=== PATIENT | male | born 1950 | race Caucasian/White ===

== ENCOUNTER 2020-08-28 10:34 | Inpatient (IN) ==
[2020-08-28] MEDS ORDERED: SODIUM CHLORIDE 0.9% 1000ML 1,000 ML IV ONE (11:02)
--- NOTE | 2020-08-28 11:07 | Emergency Department Note ---
Impression & Plan Occipital stroke, Cerebrovascular accident ED Provider Note NAME: ANISA BLAIR AGE: 69 SEX: M : 1950 ARRIVES VIA: Walk-In INFORMANT: Patient ED PROVIDER(S): Behzad Barone DO CHIEF COMPLAINT: Visual issues HPI: Patient is a 69-year-old male who presents to the ER for left eye pain and visual issues. His symptoms started yesterday around 11. He notes he started having pain behind his left eye. With that he noticed a loss of visual field when he looks straight on the right side of his vision. Headache has now resolved. The pain behind his eye is only present with coughing now. Denies any chest pain or shortness of breath. No nausea vomiting or diarrhea. No dysuria urgency or frequency. He denies any weakness or numbness. He has some paresthesias in his right thumb. He notes he does feel little dizzy/lightheaded when he is up moving around. No symptoms have now resolved. ROS: See above HPI for pertinent positives & negatives. A total of 10 systems reviewed and were otherwise negative. PAST MEDICAL HISTORY:See Below PAST SURGICAL HISTORY:See Below FAMILY HISTORY:See Below SOCIAL HISTORY:See Below HOME MEDICATIONS:See Below ALLERGIES:See Below VITALS:See Below PHYSICAL EXAMINATION: GENERAL: Sitting up in bed, alert, well appearing, well nourished, no distress, non-toxic EYE EXAM: normal conjunctiva. PERRL and EOM's intact. Visual brown intact. OROPHARYNX: no exudate, no erythema, lips, buccal mucosa, and tongue normal and mucous membranes are moist NECK: supple, no nuchal rigidity, no adenopathy, non-tender LUNGS: Clear to auscultation. Normal chest wall mechanics HEART: no murmurs, S1 normal and S2 normal ABDOMEN: abdomen soft, non-tender, normo-active bowel sounds, no masses, no rebound or guarding. BACK: Back is symmetrical on inspection and there is no deformity, no midline tenderness, no CVA tenderness. SKIN: no rashes and no bruising UPPER EXTREMITIES: upper extremities are grossly normal. LOWER EXTREMITIES: No pitting edema. NEURO EXAM: Normal sensorium, cranial nerves II-XII intact, normal speech, no weakness of arms, no weakness of legs. No drift. Finger to nose intact. Gross sensation intact. MEDICAL DECISION MAKING: Patient is a 69-year-old male who presents the ER for visual complaint. IV was established blood was obtained. Labs show no significant leukocytosis or anemia. Sed rate was normal. INR was unremarkable. BMP with slightly elevated glucose. LFTs bilirubin troponin was negative. Covid was negative. CTs and CTAs of the head and neck showed an occipital stroke. He is clearly out of the window for TPA. Discussed with hospitalist and he was admitted for further work-up. Triage Nursing notes reviewed. Limited review of prior medical records performed Vital Signs: reviewed and remarkable for no significant abnormalities Differential diagnosis: Differential Diagnosis includes but is not limited to ischemic Stroke, hemorrhagic stroke, bells palsy, mass, neoplasm, migraine headache, seizure, subarachnoid hemorrhage, TIA, and transient global amnesia. ER treatment provided: See below Diagnostics interpreted by me: ECG: Sinus rhythm rate 63 Normal axis No PVCs PACs QTC 427 Cardiac Monitoring: An order was placed for continuous cardiac monitoring. The monitor shows a rate of 65 with sinus rhythm. Laboratory studies: As stated above and show below. Imaging studies: CTs as discussed above Consultation(s): Discussed with hospitalist for further evaluation Procedures: none Critical Care: None Past Med/Surg History Medical History (Updated 08/28/20 @ 16:30 by Behzad Barone DO) HTN (hypertension) Hyperlipidemia Surgical History (Updated 08/28/20 @ 15:19 by Kaitlin Colvin MD) No pertinent past surgical history Family History (Updated 08/28/20 @ 15:22 by Kaitlin Colvin MD) Father Heart disease Mother Heart disease Brother , at 50 Heart disease Enlarged heart at 21 Myocardial infarction Social History (Updated 08/28/20 @ 15:22 by Kaitlin Colvin MD) Smoking Status: Never smoker Hx Alcohol Use: Yes Alcohol type: beer Alcohol Intake Frequency: Monthly or Less Hx Substance Use: No Feels Safe at Home: Yes Allergies Allergies Allergy/AdvReac Type Severity Reaction Status Date / Time No Known Allergies Allergy Unverified 08/28/20 11:06 Home Meds Home Medications Medication Instructions Recorded Confirmed gemfibrozil 600 mg PO BID 08/28/20 08/28/20 tamsulosin [Flomax] 0.4 mg PO QAM 08/28/20 08/28/20 Results & Data (ED) Vital Signs Vital Signs - 24 hr 08/28/20 10:38 08/28/20 10:48 08/28/20 11:00 Temperature 36.5 C Temperature Source Temporal Artery Scan Pulse Rate 40 L 65 68 Pulse Rate [Right Apical] Pulse Rate from SpO2 Sensor Pulse Rhythm Regular Pulse Rhythm [Right Apical] Pulse Strength Normal Respiratory Rate 18 18 21 Respiratory Effort / Characteristics Non-Labored Respiratory Depth Normal Respiratory Pattern Regular Blood Pressure 187/92 H Blood Pressure [Left Arm] Blood Pressure Mean 123 Blood Pressure Mean [Left Arm] Blood Pressure Position Sitting Blood Pressure Position [Left Arm] Pulse Oximetry 98 Oxygen Delivery Method Room Air Sepsis Recent Fever Within 48 Hours No Sepsis New/Unexplained Change in Mental Status No Sepsis Action Taken by Nursing No Action Required 08/28/20 11:15 08/28/20 11:20 08/28/20 11:24 Temperature Temperature Source Pulse Rate 62 Pulse Rate [Right Apical] 62 Pulse Rate from SpO2 Sensor 52 L Pulse Rhythm Pulse Rhythm [Right Apical] Regular Pulse Strength Respiratory Rate 20 18 Respiratory Effort / Characteristics Respiratory Depth Normal Respiratory Pattern Blood Pressure 161/96 H Blood Pressure [Left Arm] 161/96 H Blood Pressure Mean 117 Blood Pressure Mean [Left Arm] 117 Blood Pressure Position Blood Pressure Position [Left Arm] Lying Pulse Oximetry 97 97 97 Oxygen Delivery Method Room Air Room Air Sepsis Recent Fever Within 48 Hours Sepsis New/Unexplained Change in Mental Status Sepsis Action Taken by Nursing 08/28/20 11:39 08/28/20 11:40 08/28/20 11:41 Temperature Temperature Source Pulse Rate 72 68 71 Pulse Rate [Right Apical] Pulse Rate from SpO2 Sensor 62 73 68 Pulse Rhythm Pulse Rhythm [Right Apical] Pulse Strength Respiratory Rate 14 20 12 Respiratory Effort / Characteristics Respiratory Depth Respiratory Pattern Blood Pressure 150/84 H Blood Pressure [Left Arm] Blood Pressure Mean 106 Blood Pressure Mean [Left Arm] Blood Pressure Position Blood Pressure Position [Left Arm] Pulse Oximetry 95 96 97 Oxygen Delivery Method Room Air Sepsis Recent Fever Within 48 Hours Sepsis New/Unexplained Change in Mental Status Sepsis Action Taken by Nursing 08/28/20 12:00 08/28/20 12:02 08/28/20 12:30 Temperature Temperature Source Pulse Rate 71 71 61 Pulse Rate [Right Apical] Pulse Rate from SpO2 Sensor 63 Pulse Rhythm Pulse Rhythm [Right Apical] Pulse Strength Respiratory Rate 17 17 17 Respiratory Effort / Characteristics Respiratory Depth Respiratory Pattern Blood Pressure 191/81 H Blood Pressure [Left Arm] Blood Pressure Mean 117 Blood Pressure Mean [Left Arm] Blood Pressure Position Blood Pressure Position [Left Arm] Pulse Oximetry 96 96 96 Oxygen Delivery Method Room Air Room Air Room Air Sepsis Recent Fever Within 48 Hours Sepsis New/Unexplained Change in Mental Status Sepsis Action Taken by Nursing 08/28/20 12:31 08/28/20 13:00 08/28/20 13:30 Temperature Temperature Source Pulse Rate 63 66 72 Pulse Rate [Right Apical] Pulse Rate from SpO2 Sensor 68 Pulse Rhythm Pulse Rhythm [Right Apical] Pulse Strength Respiratory Rate 18 21 22 Respiratory Effort / Characteristics Respiratory Depth Respiratory Pattern Blood Pressure 178/103 H 149/74 H Blood Pressure [Left Arm] Blood Pressure Mean 128 99 Blood Pressure Mean [Left Arm] Blood Pressure Position Blood Pressure Position [Left Arm] Pulse Oximetry 96 94 96 Oxygen Delivery Method Room Air Room Air Room Air Sepsis Recent Fever Within 48 Hours Sepsis New/Unexplained Change in Mental Status Sepsis Action Taken by Nursing Laboratory Data Result diagrams: 08/28/20 11:09 08/28/20 11:09 Lab Results 08/28/20 08/28/20 08/28/20 Range/Units 11:01 11:09 11:09 WBC (4.8-10.8) K/uL RBC (4.7-6.1) M/uL Hgb (14.0-18.0) g/dL Hct (42-52) % MCV (80-100) fL MCH (25-34) pg MCHC (32-36) g/dL RDW Std Deviation (36.4-46.3) fL RDW Coeff of Adam (11.5-14.5) % Plt Count (130-400) K/uL MPV (7.4-10.4) fL Immature Gran % (Auto) % Neut % (Auto) % Lymph % (Auto) % [place] % (Auto) % Eos % (Auto) % Baso % (Auto) % Neut # (Auto) (1.4-6.5) K/uL Lymph # (Auto) (1.2-3.4) K/uL [place] # (Auto) (0.11-0.59) K/uL Eos # (Auto) (0-0.5) K/uL Baso # (Auto) (0-0.2) K/uL Immature Gran # (Auto) (0.00-0.02) K/uL ESR 12 (0-20) mm/hr PT (9.0-12.0) Seconds INR (0.9-1.1) APTT (21.0-31.0) Seconds PTT Ratio Sodium 137 (136-145) mmol/L Potassium 3.8 (3.5-5.1) mmol/L Chloride 105 (98-107) mmol/L Carbon Dioxide 28 (21-32) mmol/L Anion Gap 4.0 (3-11) BUN 16 (7-18) mg/dl Creatinine 1.40 (0.6-1.4) mg/dl Est Cr Clr Drug Dosing 54.7 ml/min Est GFR ( Amer) 59.0 Est GFR (Non-Af Amer) 50.9 BUN/Creatinine Ratio 11.5 (10-20) Glucose 151 H (70-99) mg/dl POC Glucose 145 H (70-99) mg/dl Calcium 10.2 H (8.5-10.1) mg/dl Magnesium 2.1 (1.8-2.4) mg/dl Total Bilirubin 1.0 (0.2-1) mg/dl AST 17 (15-37) U/L ALT 36 (12-78) U/L Alkaline Phosphatase 105 (45-117) U/L Troponin I < 0.015 (0-0.045) ng/ml C-Reactive Protein < 0.29 (0-0.29) mg/dl Total Protein 8.2 (6.4-8.2) gm/dl Albumin 4.1 (3.4-5.0) gm/dl Globulin 4.1 H (2.5-4.0) gm/dl Albumin/Globulin Ratio 1.0 (0.9-2) COVID-19 Eval Order SARS-CoV-2 (PCR) (Negative) Influenza Type A (PCR) (Neg) Influenza Type B (PCR) (Neg) RSV (RT-PCR) (Neg) 08/28/20 08/28/20 08/28/20 Range/Units 11:09 11:09 13:31 WBC 9.89 (4.8-10.8) K/uL RBC 5.48 (4.7-6.1) M/uL Hgb 17.8 (14.0-18.0) g/dL Hct 50.5 (42-52) % MCV 92.2 (80-100) fL MCH 32.5 (25-34) pg MCHC 35.2 (32-36) g/dL RDW Std Deviation 43.1 (36.4-46.3) fL RDW Coeff of Adam 12.6 (11.5-14.5) % Plt Count 275 (130-400) K/uL MPV 9.1 (7.4-10.4) fL Immature Gran % (Auto) 0.2 % Neut % (Auto) 78.9 % Lymph % (Auto) 12.3 % [place] % (Auto) 8.1 % Eos % (Auto) 0.3 % Baso % (Auto) 0.2 % Neut # (Auto) 7.80 H (1.4-6.5) K/uL Lymph # (Auto) 1.22 (1.2-3.4) K/uL [place] # (Auto) 0.80 H (0.11-0.59) K/uL Eos # (Auto) 0.03 (0-0.5) K/uL Baso # (Auto) 0.02 (0-0.2) K/uL Immature Gran # (Auto) 0.02 (0.00-0.02) K/uL ESR (0-20) mm/hr PT 11.0 (9.0-12.0) Seconds INR 1.1 (0.9-1.1) APTT 24.7 (21.0-31.0) Seconds PTT Ratio 0.9 Sodium (136-145) mmol/L Potassium (3.5-5.1) mmol/L Chloride (98-107) mmol/L Carbon Dioxide (21-32) mmol/L Anion Gap (3-11) BUN (7-18) mg/dl Creatinine (0.6-1.4) mg/dl Est Cr Clr Drug Dosing ml/min Est GFR ( Amer) Est GFR (Non-Af Amer) BUN/Creatinine Ratio (10-20) Glucose (70-99) mg/dl POC Glucose (70-99) mg/dl Calcium (8.5-10.1) mg/dl Magnesium (1.8-2.4) mg/dl Total Bilirubin (0.2-1) mg/dl AST (15-37) U/L ALT (12-78) U/L Alkaline Phosphatase (45-117) U/L Troponin I (0-0.045) ng/ml C-Reactive Protein (0-0.29) mg/dl Total Protein (6.4-8.2) gm/dl Albumin (3.4-5.0) gm/dl Globulin (2.5-4.0) gm/dl Albumin/Globulin Ratio (0.9-2) COVID-19 Eval Order [facility]FluRsv at [facility] SARS-CoV-2 (PCR) (Negative) Influenza Type A (PCR) (Neg) Influenza Type B (PCR) (Neg) RSV (RT-PCR) (Neg) 08/28/20 Range/Units 13:31 WBC (4.8-10.8) K/uL RBC (4.7-6.1) M/uL Hgb (14.0-18.0) g/dL Hct (42-52) % MCV (80-100) fL MCH (25-34) pg MCHC (32-36) g/dL RDW Std Deviation (36.4-46.3) fL RDW Coeff of Adam (11.5-14.5) % Plt Count (130-400) K/uL MPV (7.4-10.4) fL Immature Gran % (Auto) % Neut % (Auto) % Lymph % (Auto) % [place] % (Auto) % Eos % (Auto) % Baso % (Auto) % Neut # (Auto) (1.4-6.5) K/uL Lymph # (Auto) (1.2-3.4) K/uL [place] # (Auto) (0.11-0.59) K/uL Eos # (Auto) (0-0.5) K/uL Baso # (Auto) (0-0.2) K/uL Immature Gran # (Auto) (0.00-0.02) K/uL ESR (0-20) mm/hr PT (9.0-12.0) Seconds INR (0.9-1.1) APTT (21.0-31.0) Seconds PTT Ratio Sodium (136-145) mmol/L Potassium (3.5-5.1) mmol/L Chloride (98-107) mmol/L Carbon Dioxide (21-32) mmol/L Anion Gap (3-11) BUN (7-18) mg/dl Creatinine (0.6-1.4) mg/dl Est Cr Clr Drug Dosing ml/min Est GFR ( Amer) Est GFR (Non-Af Amer) BUN/Creatinine Ratio (10-20) Glucose (70-99) mg/dl POC Glucose (70-99) mg/dl Calcium (8.5-10.1) mg/dl Magnesium (1.8-2.4) mg/dl Total Bilirubin (0.2-1) mg/dl AST (15-37) U/L ALT (12-78) U/L Alkaline Phosphatase (45-117) U/L Troponin I (0-0.045) ng/ml C-Reactive Protein (0-0.29) mg/dl Total Protein (6.4-8.2) gm/dl Albumin (3.4-5.0) gm/dl Globulin (2.5-4.0) gm/dl Albumin/Globulin Ratio (0.9-2) COVID-19 Eval Order SARS-CoV-2 (PCR) NEGATIVE (Negative) Influenza Type A (PCR) Negative (Neg) Influenza Type B (PCR) Negative (Neg) RSV (RT-PCR) Negative (Neg) Administered Medications Discontinued Medications Sodium Chloride (Nss 1000ml) 1,000 mls @ 999 mls/hr IV .[id number] ONE Stop: 08/28/20 12:02 Last Infusion: 08/28/20 13:31 Dose: 0 mls/hr Documented by: [id number] Admin: 08/28/20 12:00 Dose: 999 mls/hr Documented by: [id number] Ioversol (Optiray 350 500ml) 120 ml IV ONCE ONE Stop: 08/28/20 12:18 Last Admin: 08/28/20 12:18 Dose: 120 ml Documented by: [id number] Imaging Data Radiologist's Impression: Head CT 08/28/20 11:[address], HEAD & NECK CTA HISTORY: Lightheaded. Left eye pain. Headache. Dizziness. Stroke Like Symptoms TECHNIQUE: Noncontrast head CT was performed. Multiaxial CT images of the head were performed following the intravenous administration of contrast to evaluate the major cerebral vessels. Multiaxial CT images of the neck were also performed following the intravenous administration of contrast to evaluate the major cervical vessels. Maximum intensity projection images were also obtained. A dose lowering technique was utilized adhering to the principles of ALARA. COMPARISON: None. FINDINGS: Head CT: There is a 5.1 x 2.1 cm hypodense region within the left occipital lobe. This favors an acute to subacute infarct. Periventricular white matter hypodensities consistent with microvascular ischemic change. There is no mass, hematoma, midline shift. The ventricles and sulci demonstrate mild age-related involutional changes. Head CTA: Visualized intracranial internal carotid arteries, distal vertebral arteries, and basilar artery are widely patent. There is no significant stenosis, occlusion, or aneurysm seen within the bilateral ACAs, MCAs, or electrician. The major dural venous sinuses appear patent. There is a dominant distal left vertebral artery and hypoplastic distal right vertebral artery. Neck CTA: The aortic arch and proximal great vessels are widely patent. There is no significant stenosis, occlusion, or dissection identified within the bilateral common carotid, internal carotid, or vertebral arteries. Hypoplastic right vertebral artery. IMPRESSION: 1. A 5.1 x 2.1 cm hypodense region within the left occipital lobe. This is consistent with an acute to subacute infarct. 2. No significant stenosis, occlusion, or aneurysm within the ione of Block. 2. No significant stenosis, occlusion, or dissection identified within the [place] tid or vertebral arteries. ACT 112: Negative or not required by law. Electronically signed by: Andrea Mancilla M.D. 08/28/2020 12:44 PM Head CTA 08/28/20 11:[address], HEAD & NECK CTA HISTORY: Lightheaded. Left eye pain. Headache. Dizziness. Stroke Like Symptoms TECHNIQUE: Noncontrast head CT was performed. Multiaxial CT images of the head were performed following the intravenous administration of contrast to evaluate the major cerebral vessels. Multiaxial CT images of the neck were also performed following the intravenous administration of contrast to evaluate the major cervical vessels. Maximum intensity projection images were also obtained. A dose lowering technique was utilized adhering to the principles of ALARA. COMPARISON: None. FINDINGS: Head CT: There is a 5.1 x 2.1 cm hypodense region within the left occipital lobe. This favors an acute to subacute infarct. Periventricular white matter hypodensities consistent with microvascular ischemic change. There is no mass, hematoma, midline shift. The ventricles and sulci demonstrate mild age-related involutional changes. Head CTA: Visualized intracranial internal carotid arteries, distal vertebral arteries, and basilar artery are widely patent. There is no significant stenosis, occlusion, or aneurysm seen within the bilateral ACAs, MCAs, or electrician. The major dural venous sinuses appear patent. There is a dominant distal left vertebral artery and hypoplastic distal right vertebral artery. Neck CTA: The aortic arch and proximal great vessels are widely patent. There is no significant stenosis, occlusion, or dissection identified within the bilateral common carotid, internal carotid, or vertebral arteries. Hypoplastic right vertebral artery. IMPRESSION: 1. A 5.1 x 2.1 cm hypodense region within the left occipital lobe. This is consistent with an acute to subacute infarct. 2. No significant stenosis, occlusion, or aneurysm within the ione of Block. 2. No significant stenosis, occlusion, or dissection identified within the carotid or vertebral arteries. ACT 112: Negative or not required by law. Electronically signed by: Andrea Mancilla M.D. 08/28/2020 12:44 PM Neck CTA 08/28/20 11:[address], HEAD & NECK CTA HISTORY: Lightheaded. Left eye pain. Headache. Dizziness. Stroke Like Symptoms TECHNIQUE: Noncontrast head CT was performed. Multiaxial CT images of the head were performed following the intravenous administration of contrast to evaluate the major cerebral vessels. Multiaxial CT images of the neck were also performed following the intravenous administration of contrast to evaluate the major cervical vessels. Maximum intensity projection images were also obtained. A dose lowering technique was utilized adhering to the principles of ALARA. COMPARISON: None. FINDINGS: Head CT: There is a 5.1 x 2.1 cm hypodense region within the left occipital lobe. This favors an acute to subacute infarct. Periventricular white matter hypodensities consistent with microvascular ischemic change. There is no mass, hematoma, midline shift. The ventricles and sulci demonstrate mild age-related involutional changes. Head CTA: Visualized intracranial internal carotid arteries, distal vertebral arteries, and basilar artery are widely patent. There is no significant stenosis, occlusion, or aneurysm seen within the bilateral ACAs, MCAs, or electrician. The major dural venous sinuses appear patent. There is a dominant distal left vertebral artery and hypoplastic distal right vertebral artery. Neck CTA: The aortic arch and proximal great vessels are widely patent. There is no significant stenosis, occlusion, or dissection identified within the bilateral common carotid, internal carotid, or vertebral arteries. Hypoplastic right vertebral artery. IMPRESSION: 1. A 5.1 x 2.1 cm hypodense region within the left occipital lobe. This is consistent with an acute to subacute infarct. 2. No significant stenosis, occlusion, or aneurysm within the ione of Block. 2. No significant stenosis, occlusion, or dissection identified within the carotid or vertebral arteries. ACT 112: Negative or not required by law. Electronically signed by: Andrea Mancilla M.D. 08/28/2020 12:44 PM Discharge Plan Visit Data Chief Complaint: Neuro Symptoms/Deficit Stated Complaint: LEFT EYE PAIN, LIGHT HEADED ED Provider: Behzad Barone Discharge Problem: Occipital stroke, Cerebrovascular accident Forms Stand Alone Forms: [facility] Prescriptions Prescriptions: No Action tamsulosin [Flomax] 0.4 mg Capsule 0.4 mg PO QAM RF: 0 gemfibrozil 600 mg Tablet 600 mg PO BID RF: 0 Discharge Problem: Cerebrovascular accident Qualifiers: CVA mechanism: unspecified Qualified Code(s): I63.9 - Cerebral infarction, u nspecified
[2020-08-28 11:29] LABS: Basophils # (auto) 0.02 K/uL (0-0.2); Basophils % (auto) 0.2 %; Eosinophils # (auto) 0.03 K/uL (0-0.5); Eosinophils % (auto) 0.3 %; Hematocrit (blood only) 50.5 % (42-52); Hemoglobin 17.8 g/dL (14.0-18.0); Immature Granulocytes # (auto) 0.02 K/uL (0.00-0.02); Immature Granulocytes % (auto) 0.2 %; Lymphocytes # (auto) 1.22 K/uL (1.2-3.4); Lymphocytes % (auto) 12.3 %; Mean Corpuscular Hemoglobin 32.5 pg (25-34); Mean Corpuscular Hgb Conc 35.2 g/dL (32-36); Mean Corpuscular Volume 92.2 fL (80-100); Mean Platelet Volume 9.1 fL (7.4-10.4); Monocytes % (auto) 8.1 %; Neutrophils % (auto) 78.9 %; Platelet Count 275 K/uL (130-400); RDW Coefficient of Variation 12.6 % (11.5-14.5); RDW Standard Deviation 43.1 fL (36.4-46.3); Red Blood Count 5.48 M/uL (4.7-6.1); White Blood Count 9.89 K/uL (4.8-10.8)
[2020-08-28 11:44] LABS: INR 1.1 (0.9-1.1); Partial Thromboplastin Ratio 0.9; Partial Thromboplastin Time 24.7 Seconds (21.0-31.0)
[2020-08-28 11:57] LABS: Alanine Aminotransferase 36 U/L (12-78); Albumin Level 4.1 gm/dl (3.4-5.0); Aspartate Aminotransferase 17 U/L (15-37); BUN Creatinine Ratio 11.5 (10-20); Blood Urea Nitrogen 16 mg/dl (7-18); Calcium 10.2 mg/dl (8.5-10.1); Carbon Dioxide 28 mmol/L (21-32); Chloride 105 mmol/L (98-107); Creatinine Clr Calc Pharmacy 54.7 ml/min; Est GFR (Non-African American) 50.9; Glucose 151 mg/dl (70-99); Magnesium 2.1 mg/dl (1.8-2.4); Potassium 3.8 mmol/L (3.5-5.1); Sodium 137 mmol/L (136-145)
[2020-08-28 12:02] LABS: Alkaline Phosphatase 105 U/L (45-117); C Reactive Protein < 0.29 mg/dl (0-0.29); Globulin 4.1 gm/dl (2.5-4.0); Total Protein 8.2 gm/dl (6.4-8.2); Troponin I < 0.015 ng/ml (0-0.045)
[2020-08-28] MEDS ORDERED: OPTIRAY 350 500ml IV ONE (12:17)
--- NOTE | 2020-08-28 12:45 | CT Scan Report ---
NONCONTRAST HEAD CT, HEAD & NECK CTA HISTORY: Lightheaded. Left eye pain. Headache. Dizziness. Stroke Like Symptoms TECHNIQUE: Noncontrast head CT was performed. Multiaxial CT images of the head were performed followi ng the intravenous administration of contrast to evaluate the major cerebral vessels. Multiaxial CT i mages of the neck were also performed following the intravenous administration of contrast to evaluat e the major cervical vessels. Maximum intensity projection images were also obtained. A dose lowering technique was utilized adhering to the principles of ALARA. COMPARISON: None. FINDINGS: Head CT: There is a 5.1 x 2.1 cm hypodense region within the left occipital lobe. This favors an acut e to subacute infarct. Periventricular white matter hypodensities consistent with microvascular ische lito change. There is no mass, hematoma, midline shift. The ventricles and sulci demonstrate mild age- related involutional changes. Head CTA: Visualized intracranial internal carotid arteries, distal vertebral arteries, and basilar a rtery are widely patent. There is no significant stenosis, occlusion, or aneurysm seen within the jignesh ateral ACAs, MCAs, or route agent. The major dural venous sinuses appear patent. There is a dominant distal left vertebral artery and hypoplastic distal right vertebral artery. Neck CTA: The aortic arch and proximal great vessels are widely patent. There is no significant sten osis, occlusion, or dissection identified within the bilateral common carotid, internal carotid, or v ertebral arteries. Hypoplastic right vertebral artery. IMPRESSION: 1. A 5.1 x 2.1 cm hypodense region within the left occipital lobe. This is consistent with an acute t o subacute infarct. 2. No significant stenosis, occlusion, or aneurysm within the [place] ir[place] of Block. 2. No significant stenosis, occlusion, or dissection identified within the carotid or vertebral arter ies. ACT 112: Negative or not required by law. Electronically signed by: Andrea Mancilla M.D. 08/28/2020 12:44 PM
--- NOTE | 2020-08-28 12:45 | CT Scan Report ---
NONCONTRAST HEAD CT, HEAD & NECK CTA HISTORY: Lightheaded. Left eye pain. Headache. Dizziness. Stroke Like Symptoms TECHNIQUE: Noncontrast head CT was performed. Multiaxial CT images of the head were performed followi ng the intravenous administration of contrast to evaluate the major cerebral vessels. Multiaxial CT i mages of the neck were also performed following the intravenous administration of contrast to evaluat e the major cervical vessels. Maximum intensity projection images were also obtained. A dose lowering technique was utilized adhering to the principles of ALARA. COMPARISON: None. FINDINGS: Head CT: There is a 5.1 x 2.1 cm hypodense region within the left occipital lobe. This favors an acut e to subacute infarct. Periventricular white matter hypodensities consistent with microvascular ische lito change. There is no mass, hematoma, midline shift. The ventricles and sulci demonstrate mild age- related involutional changes. Head CTA: Visualized intracranial internal carotid arteries, distal vertebral arteries, and basilar a rtery are widely patent. There is no significant stenosis, occlusion, or aneurysm seen within the jignesh ateral ACAs, MCAs, or linoleum tile floor layer. The major dural venous sinuses appear patent. There is a dominant distal left vertebral artery and hypoplastic distal right vertebral artery. Neck CTA: The aortic arch and proximal great vessels are widely patent. There is no significant sten osis, occlusion, or dissection identified within the bilateral common carotid, internal carotid, or v ertebral arteries. Hypoplastic right vertebral artery. IMPRESSION: 1. A 5.1 x 2.1 cm hypodense region within the left occipital lobe. This is consistent with an acute t o subacute infarct. 2. No significant stenosis, occlusion, or aneurysm within the ambler of Block. 2. No significant stenosis, occlusion, or dissection identified within the carotid or vertebral arter ies. ACT 112: Negative or not required by law. Electronically signed by: Andrea Mancilla M.D. 08/28/2020 12:44 PM
--- NOTE | 2020-08-28 12:45 | CT Scan Report ---
NONCONTRAST HEAD CT, HEAD & NECK CTA HISTORY: Lightheaded. Left eye pain. Headache. Dizziness. Stroke Like Symptoms TECHNIQUE: Noncontrast head CT was performed. Multiaxial CT images of the head were performed followi ng the intravenous administration of contrast to evaluate the major cerebral vessels. Multiaxial CT i mages of the neck were also performed following the intravenous administration of contrast to evaluat e the major cervical vessels. Maximum intensity projection images were also obtained. A dose lowering technique was utilized adhering to the principles of ALARA. COMPARISON: None. FINDINGS: Head CT: There is a 5.1 x 2.1 cm hypodense region within the left occipital lobe. This favors an acut e to subacute infarct. Periventricular white matter hypodensities consistent with microvascular ische lito change. There is no mass, hematoma, midline shift. The ventricles and sulci demonstrate mild age- related involutional changes. Head CTA: Visualized intracranial internal carotid arteries, distal vertebral arteries, and basilar a rtery are widely patent. There is no significant stenosis, occlusion, or aneurysm seen within the jignesh ateral ACAs, MCAs, or cultural anthropology professor. The major dural venous sinuses appear patent. There is a dominant distal left vertebral artery and hypoplastic distal right vertebral artery. Neck CTA: The aortic arch and proximal great vessels are widely patent. There is no significant sten osis, occlusion, or dissection identified within the bilateral common carotid, internal carotid, or v ertebral arteries. Hypoplastic right vertebral artery. IMPRESSION: 1. A 5.1 x 2.1 cm hypodense region within the left occipital lobe. This is consistent with an acute t o subacute infarct. 2. No significant stenosis, occlusion, or aneurysm within the nome of Block. 2. No significant stenosis, occlusion, or dissection identified within the carotid or vertebral arter ies. ACT 112: Negative or not required by law. Electronically signed by: Andrea Mancilla M.D. 08/28/2020 12:44 PM
[2020-08-28 15:11] LABS: Influenza A virus by PCR Negative (Neg); Influenza B virus by PCR Negative (Neg); RSV by PCR Negative (Neg); SARS CoV2 RNA(COVID-19) InHosp NEGATIVE (Negative)
[2020-08-28] MEDS ORDERED: POLYETHYLENE (MIRALAX) 17 GM PACK PO PRN (15:16)
[2020-08-28] MEDS ORDERED: ALUMINUM/MAGNESIUM SUSP 30 ML UDC PO PRN (15:16)
[2020-08-28] MEDS ORDERED: ACETAMINOPHEN 325 MG TAB PO PRN (15:16)
[2020-08-28] MEDS ORDERED: ONDANSETRON INJ 2 MG/ML 2 ML VIAL IV PRN (15:16)
[2020-08-28] MEDS ORDERED: MAGNESIUM HYDROXIDE SUSP 30 ML UDC PO PRN (15:16)
--- NOTE | 2020-08-28 15:25 | Electrocardiogram Report ---
Test Reason : Blood Pressure : / mmHG Vent. Rate : 063 BPM Atrial Rate : 063 BPM P-R Int : 134 ms QRS Dur : 086 ms QT Int : 418 ms P-R-T Axes : 047 004 038 degrees QTc Int : 427 ms Sinus rhythm with occasional Premature ventricular complexes and Premature atrial complexes Otherwise normal ECG No previous ECGs available Confirmed by Imer Saunders ([id number]) on 08/28/2020 3:25:32 PM Referred By: REFERRED SELF Confirmed By:Yazan Saunders
--- NOTE | 2020-08-28 16:09 | Medical Student H&P ---
Date of Service August 28, 2020 Assessment & Plan (1) Cerebrovascular accident: Pt with never smoker with pmhx of HTN, HLD, and BPH presenting with L eye pain and b/l frontal PARMAR -w-i-t-h- admitted for L occipital CVA identified on head CT. -C-T- -z-f-v-w-i-n--g- -L- -e-c-q-k-y-y-t-a-l- -C-V-A-.- 1. L occipital CVA - R -p-g-u-c-n-l-m-o-u-s- hemianopsia with b/l frontal PARMAR that is consistent with L occipital stroke. Sxs improving. Not returned to baseline. - Ordered lipid panel, CBC, BMP - Start on ASA - Start on 40mg atorvastatin - Order echo - Routine neuro check and consult neurology 2. HTN - Chronic. Was previously on HCTZ, but was having leg cramps. Not taking any home med currently. Has home radial cuff machine, but rarely use. - Initial BP of 187/92 which is downtrending. Currently 159/93. - Goal BP of 140/70 or higher. Can use Metoprolol IV 5 mg PRN for BP > 220/120 to allow for permissive hypertension. If HR <60 with elevated BP, can use hydralazine instead. - Continue to watch. 3. HDL - Chronic. - Started on atorvastatin 40mg. - -Q-v-t-t-i-n-u-e- -h-o-m-e- -m-e-d- -o-f- Discontinued gemfibrozil due to lack of CVA prevention efficacy. 4. Suspect Dementia - reports 2yrs of forgetfulness and inattentiveness. - Not oriented to month or year on exam, frequently requires re-orientation to focus on task at hand - Continue to monitor 5. BPH - chronic. No dysuria or urinary retention. - continue home med of tamsulosin DVT PPX: SCDs, ambulate ad mitzi FEN/GI: NS 130 ml/hr maintenance fluid, NPO, pending speech eval Code: Full Code Dispo: telemetry, PT/OT evals pending CVA mechanism: unspecified Qualified Code(s): I63.9 - Cerebral infarction, unspecified (2) Occipital stroke: (3) Hyperlipidemia: (4) HTN (hypertension): History of Present Illness Primary Care Provider: Mendez Lim MD Pt with pmhx of HTN, HDL, and BPH who presented to ED today with L eye pain. Yesterday morning, pt was playing basketball with granddaughter when he suddenly developed a constant aching pain in L eye. Through the day, he developed a PARMAR with no N/V or photophobia. He had lightheadedness, and dizziness. He took 2 Tylenols and later that evening, he was unable to see the right-side of the t.v. screen. He went to sleep with no difficulty. This morning, he reports that he only gets the L eye pain when he coughs. No eye pain with bowel movement. He has a constant b/l frontal PARMAR. He was scheduled to see someone at [facility] today, but they recommended he come to ED due to symptoms and a home BP reading of 190s/100s. In the ED, his BP was 187/92. Unremarkable CBC and coagulation panel. BMP with glucose of 151. Noncontrast CT head with a 5.1 x 2.1 cm acute to subacute infarct. CTA neck and head with no significant stenosis, occlusion, or aneurysm. EKG showing sinus rhythm with occasional PVC and PACs. Patient is never smoker. No recreational drug. Caffeinated beverage include tea in AM and Dr.Pepper in PM. Not on any restricting diet. Lives at home with and grand-daughter. Reports increase in stress due to sister who was diagnosed with leukemia and having custody of grand-daughter. Pertinent family history of brother who at 21 of unknown "enlarged heart" condition, brother who of NH at age 50, sister who has had multiple cardiac stents and CABG, and mother and father who both had CAD. No family history of strokes. Allergies Allergy/AdvReac Type Severity Reaction Status Date / Time No Known Allergies Allergy Unverified 08/28/20 11:06 Home Medications Medication Instructions Recorded Confirmed Type gemfibrozil 600 mg PO BID 08/28/20 08/28/20 History tamsulosin [Flomax] 0.4 mg PO QAM 08/28/20 08/28/20 History Past Med/Surg History Medical History (Updated 08/28/20 @ 16:30 by Behzad Barone DO) HTN (hypertension) Hyperlipidemia Surgical History (Updated 08/28/20 @ 15:19 by Kaitlin Colvin MD) No pertinent past surgical history Family History (Updated 08/28/20 @ 15:22 by Kaitlin Colvin MD) Father Heart disease Mother Heart disease Brother , at 50 Heart disease Enlarged heart at 21 Myocardial infarction Social History (Updated 08/28/20 @ 15:22 by Kaitlin Colvin MD) Smoking Status: Never smoker Hx Alcohol Use: Yes Alcohol type: beer Alcohol Intake Frequency: Monthly or Less Hx Substance Use: No Feels Safe at Home: Yes Review of Systems + fatigue (chronic); no fever + corrective lenses; no diplopia and no photophobia + snoring; no tinnitus, no hearing loss, no dizziness, no nasal congestion and no sore throat no cough and no dyspnea no chest pain and no palpitations no abdominal pain, no nausea and no vomiting no dysuria, no urinary incontinence and no hematuria no back pain and no neck pain as per Subjective / HPI Physical Exam Physical Exam: General: Sitting comfortably. Cooperative. NAD. HEENT: Normocephalic. Normal conjunctiva. Moist mucous membrane. Respiratory: Lungs are clear to auscultation with no wheezing, rales, or crackles. Cardiovascular: S1 and S2 present, irregular rhythm. No murmur, gallops, or rubs. Abdomen Bowel sound present, soft, contender. No organomegaly. Neurological: - Mental: oriented to person and place. -W-h-e-n- -a-s-k-e-d- -a-b-o-u-t- -m-o-n-t-h-,- -h-e- -s-a-i-d- -X-d-z-r-u-a-r-y-.- Incorrect recollection of month and year. Recalled 2/3 objects at 3 minutes. Unable to spell "world" backward. Abnormal clock drawing as pt only hcilango a [place] and added tic brian for time with no numbers or hands. - CN 3-12 intact. PERRLA. EOMI with no nystagmus. No eye deviation or gaze preference. R -c-m-l-p-k-k-m-o-u-s- hemianopsia. L superior lateral quadrantanopia - Motor: no pronator drift -o-f- -p-e-h----n-z-d-z-f-m-h-e-d- -a-r-m-s-. Muscle bulk and tone are normal. Strength is 5/5 -f-u-l-l- bilaterally. - Reflex: 2+ and symmetric in tricep, brachioradialis, and patellar. 1+ and symmetric in Achilles. B/L babinski neutral. - Sensory: Light touch intact in B/L upper and lower extremities. - Coordination: rapid alternating movements intact. No dysmetria on lbebcz-ye-cmmp and gtgj-olne-espn. No abnormal or extraneous movement. - Gait: Posture is normal. Gait is steady with normal steps, base, and turning. Results & Data ([facility]) Vital Signs (Past 12 Hours) Vital Signs Temp Pulse Pulse Resp BP BP Pulse Ox 08/28/20 13:30 72 22 149/74 H 96 08/28/20 13:00 66 21 94 08/28/20 12:31 63 18 178/103 H 96 08/28/20 12:30 61 17 96 08/28/20 12:02 71 17 191/81 H 96 08/28/20 12:00 71 17 96 08/28/20 11:41 71 12 97 08/28/20 11:40 68 20 150/84 H 96 08/28/20 11:39 72 14 95 08/28/20 11:24 97 08/28/20 11:20 62 18 161/96 H 97 08/28/20 11:15 62 20 161/96 H 97 08/28/20 11:00 68 21 08/28/20 10:48 65 18 08/28/20 10:38 36.5 C 40 L 18 187/92 H 98 CBC, CMP, Coagulation panel reviewed: no notable abnormalities CT head: 5 x 2 cm acute vs subacute infarct of L occipital lobe CTA Head and neck: negative for stenosis, aneurysm, abnormalities Supervising Attestation Attending attestation Pt seen and examined in concert with Dr. Colvin, . . In agreement with the documented findings as noted in the resident documentation with any exceptions or additions as noted here. New onset neurologic symptoms - bilateral frontal headache, left sided aching vision pain with visual deficit, balance issues which onset acutely yesterday and have imrpoved somewhat but persist today with evident CVA on CT head in the setting of uncontrolled HTN and HLD. On examination, S1/S2 nl RRR no MCG. CTAB. Abd NT/ND BS+ve, neurologic exam as noted above Left occiput CVA, acute - neurology consultation - secondary prevention w/ ASA, statin therapy discussed andd recommended. h/o statin intolerance but no reliable, repeated symptoms (hand swelling, fatigue, unknown) so willing to trial and re-evaluate. HTN - permissive HTN for now, would likely benefit from ARB in the near future HLD - statin therapy as noted Elevatedd glucose, nonfasting - consider A1c if persistently elevated glucose level in house. Else see resident documentation as noted. Resident Activity Tracking Resident Involvement: Resident Care Provided Care Provided: Adult Hospital Medicine
[2020-08-28] MEDS ORDERED: PHARMACIST DISCHARGE MED REC CONSULT PRN (17:48)
[2020-08-28] MEDS: HEPARIN SOD 5,000 UNIT/0.5 ML VIAL SQ SCH (20:30)
[2020-08-28] MEDS ORDERED: gemfibroziL 600 MG TAB PO SCH ×2 (21:00)
[2020-08-29 05:20] LABS: Basophils # (auto) 0.02 K/uL (0-0.2); Basophils % (auto) 0.2 %; Eosinophils # (auto) 0.08 K/uL (0-0.5); Hematocrit (blood only) 47.1 % (42-52); Hemoglobin 16.4 g/dL (14.0-18.0); Immature Granulocytes # (auto) 0.01 K/uL (0.00-0.02); Immature Granulocytes % (auto) 0.1 %; Lymphocytes # (auto) 1.56 K/uL (1.2-3.4); Lymphocytes % (auto) 19.2 %; Mean Corpuscular Hemoglobin 32.5 pg (25-34); Mean Corpuscular Hgb Conc 34.8 g/dL (32-36); Mean Corpuscular Volume 93.3 fL (80-100); Mean Platelet Volume 8.9 fL (7.4-10.4); Monocytes # (auto) 0.75 K/uL (0.11-0.59); Monocytes % (auto) 9.2 %; Neutrophils # (auto) 5.72 K/uL (1.4-6.5); Neutrophils % (auto) 70.3 %; Platelet Count 236 K/uL (130-400); RDW Coefficient of Variation 12.7 % (11.5-14.5); RDW Standard Deviation 43.1 fL (36.4-46.3); Red Blood Count 5.05 M/uL (4.7-6.1); White Blood Count 8.14 K/uL (4.8-10.8)
[2020-08-29 05:48] LABS: BUN Creatinine Ratio 13.6 (10-20); Calcium 8.6 mg/dl (8.5-10.1); Creatinine Clr Calc Pharmacy 53.9 ml/min; Magnesium 1.9 mg/dl (1.8-2.4); Potassium 3.7 mmol/L (3.5-5.1)
[2020-08-29 07:43] LABS: Estimated Average Glucose 143 mg/dl; Hemoglobin A1C 6.6 % (4.5-5.6)
[2020-08-29] MEDS: HEPARIN SOD 5,000 UNIT/0.5 ML VIAL SQ SCH (08:06)
[2020-08-29] MEDS ORDERED: ATORVASTATIN 40 MG TAB PO SCH (09:00)
[2020-08-29] MEDS ORDERED: TAMSULOSIN HCL 0.4 MG CAP PO SCH (09:00)
[2020-08-29] MEDS ORDERED: ASPIRIN 81 MG ECTAB PO SCH (09:00)
--- NOTE | 2020-08-29 09:30 | Neurology Consultation ---
Date of Consultation August 29, 2020 Assessment & Plan (1) Occipital stroke: Subacute to acute left occipital lobe stroke with symptoms beginning 2 days ago, presenting with right visual field loss. Patient also has some paresthesias affecting the right hand and foot. I would recommend a brain MRI to further evaluate his occipital lobe stroke and look for any other areas of acute infarct. Follow-up with results of echocardiogram. Consider obtaining 30-day mobile cardiac outpatient telemetry as well. Also, patient will need formal visual field assessment as an outpatient, no driving until cleared by ophthalmology. I agree with daily low-dose aspirin and atorvastatin. Continue to monitor patient's blood pressure. He will need additional outpatient cardiovascular risk factor monitoring with his PCP. History of Present Illness Reason for Consultation: stroke Requesting Physician: JOSEPHINE Shafer Attending Physician: Mendez Lim MD History of Present Illness The patient is a 69-year-old male with a chief complaint of loss of the right visual field that began 2 days ago at around 11 AM. The symptom was of sudden onset and has been persistent. He had been complaining of some associated headache as well although this particular symptom has resolved. He also complains of some associated paresthesias affecting the right hand and bottom of the right foot. He currently denies any ocular pain, diplopia, dysarthria, dysphagia, or weakness of the arms or legs. A CT of the head revealed a subacute infarct within the left occipital lobe measuring [address] angiography of the head and neck unremarkable. These imaging findings were observed by the interpreting radiologist. I reviewed the images as well and agree. Past medical history notable for hypertension and hyperlipidemia. He is prescribed gemfibrozil as an outpatient but is not on an antihypertensive. His blood pressure was 187/92 at the time of presentation. No known history of atrial fibrillation. Allergies Allergy/AdvReac Type Severity Reaction Status Date / Time No Known Allergies Allergy Unverified 08/28/20 11:06 Home Medications Medication Instructions Recorded Confirmed Type gemfibrozil 600 mg PO BID 08/28/20 08/28/20 History tamsulosin [Flomax] 0.4 mg PO QAM 08/28/20 08/28/20 History Patient History Medical History HTN (hypertension) Hyperlipidemia Surgical History No pertinent past surgical history Family History Father Heart disease Mother Heart disease Brother , at 50 Heart disease Enlarged heart at 21 Myocardial infarction Social History Smoking Status: Never smoker Hx Alcohol Use: Yes Alcohol type: beer Alcohol Intake Frequency: Monthly or Less Hx Substance Use: No Preferred Language: Malaysian Composition Mixer Required: No Beliefs That Will Affect Care: None Current Living Situation: Spouse Other Information That Helps Us Care for You: No Feels Safe at Home: Yes Safety Concerns: Feels Safe At This Time Assistive Devices: Glasses Review of Systems Constitutional: no fever and no chills Eyes: as per Subjective / HPI and + blind spots; no diplopia Ear, Nose, Mouth, Throat: no hearing loss Respiratory: no cough and no dyspnea Cardiovascular: no chest pain and no palpitations Gastrointestinal: no nausea and no vomiting Genitourinary: no dysuria Musculoskeletal: no neck pain and no myalgia Integumentary: no rash and no lesions Neurologic: as per Subjective / HPI and + paresthesia; no localized weakness Psychiatric: no depression and no anxiety Hematologic / Lymphatic: no easy bleeding and no easy bruising Exam (Neuro) Constitutional: well developed and well nourished; no acute distress Eyes: normal visual brown by confrontation (No gross field deficit with bedside confrontation testing), PERRL, normal accommodation and EOM intact bilaterally; no fundoscopic abnormality, no nystagmus and no papilledema Cardiovascular: Vessels: normal carotid upstroke; no carotid bruit Neurologic: Oriented to:: Person, Place and Time Memory: Short Term Intact and Remote Intact Attention: Span Intact and Concentration Intact Language: Naming Objects and Repeating Phrases Speech Fluency: negative Dysarthria Speech Aphasia: negative Aphasia Fund of Knowledge: Current Events, Past History and Vocabulary Cranial Nerves: Normal II (Visual brown full to confrontation, visual acuity normal), III, IV, (Pupils equal round reactive to light and accommodation, eye movements normal), V (Facial sensation intact), VII (There is no facial droop or weakness), VIII (Hearing intact), IX, X (Palate elevates to midline), XI (Shoulder shrug intact) and XII (Tongue protrudes to midline) Motor Strength: Normal Lower Extremities and Normal Upper Extremities; negative Pronator Drift Motor Tone: Normal Lower Extremities and Normal Upper Extremities Muscle Bulk/Involuntary Movements: No Involuntary Movements; negative Muscle Atrophy Sensation: Light Touch Intact, Pain/Temperature Intact, Vibration Intact and Proprioception Intact Coordination: Normal; negative Limited Balance, Dysdiadochokinesia, Finger-Nose Abnormal and Heel-Brown Abnormal Deep Tendon Reflexes: Rt Triceps: 2+, Lt Triceps: 2+, Rt Biceps: 2+, Lt Biceps: 2+, Rt Brachioradialis: 2+, Lt Brachioradialis: 2+, Rt Patellar: 2+, Lt Patellar: 2+, Rt Ankle: 2+ and Lt Ankle: 2+ Special Tests: negative Babinski Present Gait: Normal Station and Gait Results & Data ([facility]) Vital Signs (Past 12 Hours) Vital Signs Temp Pulse Resp BP Pulse Ox 08/29/20 03:29 36.7 C 08/29/20 03:27 68 22 107/60 94 08/29/20 00:33 67 08/29/20 00:12 36.7 C 08/29/20 00:01 72 19 103/61 96 Laboratory Results WBC 8.14, hemoglobin 16.4, hematocrit 47.1, platelet count 236, ESR 12, sodium 140, potassium 3.7, BUN 19, creatinine 1.42, glucose 122, hemoglobin A1c 6.6, triglycerides 323, cholesterol 210, LDL 113, VLDL 65, HDL [address] of the head including CT angiography of the head and neck are as described in the history of present illness. An electrocardiogram reveals a sinus rhythm with occasional premature ventricular complexes and premature atrial complexes, 63 bpm. Coding Level of Care Code 49809 Initial Inpt Care Lvl 3 Diagnoses Occipital stroke I63.9
--- NOTE | 2020-08-29 10:01 | Hospitalist Progress Note ---
Date of Service August 29, 2020 Assessment & Plan (1) Cerebrovascular accident: Pt with never smoker with pmhx of HTN, HLD, and BPH presenting with L eye pain and b/l frontal PARMAR -w-i-t-h- admitted for L occipital CVA identified on head CT. -C-T- -q-h-i-w-i--n-g- -L- -w-g-r-e-y-o-t-a-l- -C-V-A-.- 1. L occipital CVA - R -m-r-g-p-o-p-m-o-u-s- hemianopsia with b/l frontal PARMAR that is consistent with L occipital stroke. Sxs improving. Not returned to baseline. - Ordered lipid panel, CBC, BMP - Start on ASA - Start on 40mg atorvastatin - Order echo - Routine neuro check and consult neurology 2. HTN - Chronic. Was previously on HCTZ, but was having leg cramps. Not taking any home med currently. Has home radial cuff machine, but rarely use. - Initial BP of 187/92 which is downtrending. Currently 159/93. - Goal BP of 140/70 or higher. Can use Metoprolol IV 5 mg PRN for BP > 220/120 to allow for permissive hypertension. If HR <60 with elevated BP, can use hydralazine instead. - Continue to watch. 3. HDL - Chronic. - Started on atorvastatin 40mg. - -W-y-f-t-i-n-u-e- -h-o-m-e- -m-e-d- -o-f- Discontinued gemfibrozil due to lack of CVA prevention efficacy. 4. Suspect Dementia - reports 2yrs of forgetfulness and inattentiveness. - Not oriented to month or year on exam, frequently requires re-orientation to focus on task at hand - Continue to monitor 5. BPH - chronic. No dysuria or urinary retention. - continue home med of tamsulosin DVT PPX: SCDs, ambulate ad mitzi FEN/GI: NS 130 ml/hr maintenance fluid, NPO, pending speech eval Code: Full Code Dispo: telemetry, PT/OT evals pending (2) Occipital stroke: (3) Hyperlipidemia: (4) HTN (hypertension): Admission and Anticipated Discharge Date Admission Date: August 28, 2020 Results & Data Results & Data ([facility]) Vital Signs (Past 12 Hours) Vital Signs Temp Pulse Resp BP Pulse Ox 08/29/20 03:29 36.7 C 08/29/20 03:27 68 22 107/60 94 08/29/20 00:33 67 08/29/20 00:12 36.7 C 08/29/20 00:01 72 19 103/61 96 (1) Cerebrovascular accident CVA mechanism: unspecified Qualified Code(s): I63.9 - Cerebral infarction, unspecified
--- NOTE | 2020-08-29 11:47 | XCELERA ---
[id number]
--- NOTE | 2020-08-29 13:04 | XRay Report ---
ORBIT RADIOGRAPHS 3 VIEWS HISTORY: pre-MRI screening. COMPARISON: PET/CT August 28, 2020 FINDINGS: There are no radiopaque foreign bodies identified within the orbits. IMPRESSION: No radiopaque foreign bodies identified within the orbits. ACT 112: Negative or not required by law. Electronically signed by: Genaro Mcclendon M.D. 08/29/2020 1:02 PM
[2020-08-29] MEDS ORDERED: GADOBUTROL 65ML VIAL IV ONE (13:44)
--- NOTE | 2020-08-29 13:59 | Magnetic Resonance Report ---
MRI OF THE BRAIN WITHOUT AND WITH IV CONTRAST CLINICAL HISTORY: Stroke. COMPARISON STUDY: Head CT and CTA of the head August 28, 2020. TECHNIQUE: Utilizing a 1.5 Sangeeta magnet and dedicated coil, multiplanar, multiecho imaging of the br ain was performed pre and postcontrast administration. IV administration of 7.5 mL of Gadavist contr ast was uneventful. FINDINGS: There is a 6.3 x 2.6 cm focus of restricted diffusion within the left occipital lobe, as sh own on prior head CT. This is hypointense on the ADC map and therefore represents an acute to subacut e infarct. A small focus of hyperintensity within the right frontal lobe on axial image 17 of 22 of t he diffusion-weighted sequence represents T2 shine through. No acute hemorrhage is present. There is minimal mass effect with sulcal effacement. Ventricular system is normal. Basilar cisterns are patent . There are no extra axial collections. There is no intracranial mass or pathologic enhancement. Calv arial signal is normal. Numerous white matter T2 hyperintense foci reflect small vessel disease. Nikki ral old lacunar infarcts are noted within the right centrum semiovale ovale, left thalamus and left c erebellar hemisphere. IMPRESSION: 1. 6.3 x 2.6 cm acute to subacute infarct within the left occipital lobe. No hemorrhage. Minimal mass effect. 2. Multiple old lacunar infarcts and moderate small vessel disease. 3. No intracranial mass or pathologic enhancement. ACT 112: Negative or not required by law. Electronically signed by: Genaro Mcclendon M.D. 08/29/2020 1:58 PM
[2020-08-29] MEDS ORDERED: metFORMIN HCL 500 MG TAB PO SCH (15:30)
[2020-08-29] MEDS ORDERED: lisinopril 5 MG TAB PO ONE (15:30)
[2020-08-29] MEDS ORDERED: STROKE PATIENT DISCHARGE STA (15:41)
--- NOTE | 2020-08-29 15:47 | Discharge Summary ---
Date of Service August 29, 2020 Admission HPI Per Admitting Provider Pt with pmhx of HTN, HDL, and BPH who presented to ED today with L eye pain. Yesterday morning, pt was playing basketball with granddaughter when he suddenly developed a constant aching pain in L eye. Through the day, he developed a PARMAR with no N/V or photophobia. He had lightheadedness, and dizziness. He took 2 Tylenols and later that evening, he was unable to see the right-side of the t.v. screen. He went to sleep with no difficulty. This morning, he reports that he only gets the L eye pain when he coughs. No eye pain with bowel movement. He has a constant b/l frontal PARMAR. He was scheduled to see someone at [facility] today, but they recommended he come to ED due to symptoms and a home BP reading of 190s/100s. In the ED, his BP was 187/92. Unremarkable CBC and coagulation panel. BMP with glucose of 151. Noncontrast CT head with a 5.1 x 2.1 cm acute to subacute infarct. CTA neck and head with no significant stenosis, occlusion, or aneurysm. EKG showing sinus rhythm with occasional PVC and PACs. Patient is never smoker. No recreational drug. Caffeinated beverage include tea in AM and DrPablo in PM. Not on any restricting diet. Lives at home with and grand-daughter. Reports increase in stress due to sister who was diagnosed with leukemia and having custody of grand-daughter. Pertinent family history of brother who at 21 of unknown "enlarged heart" condition, brother who of DE at age 50, sister who has had multiple cardiac stents and CABG, and mother and father who both had CAD. No family history of strokes. Admission Exam Per Admitting Provider General: Sitting comfortably. Cooperative. NAD. HEENT: Normocephalic. Normal conjunctiva. Moist mucous membrane. Respiratory: Lungs are clear to auscultation with no wheezing, rales, or crackles. Cardiovascular: S1 and S2 present, irregular rhythm. No murmur, gallops, or rubs. Abdomen Bowel sound present, soft, contender. No organomegaly. Neurological: - Mental: oriented to person and place. When asked about month, he said June. Incorrect recollection of month and year. Recalled 2/3 objects at 3 minutes. Unable to spell "world" backward. Abnormal clock drawing as pt only chilango a tejon and added tic brian for time with no numbers or hands. - CN 3-12 intact. PERRLA. EOMI with no nystagmus. No eye deviation or gaze preference. R homonymous hemianopsia. L superior lateral quadrantanopia - Motor: no pronator drift of out-stretched arms. Muscle bulk and tone are normal. Strength is 5/5 full bilaterally. - Reflex: 2+ and symmetric in tricep, brachioradialis, and patellar. 1+ and symmetric in Achilles. B/L babinski neutral. - Sensory: Light touch intact in B/L upper and lower extremities. - Coordination: rapid alternating movements intact. No dysmetria on [id number] and [id number]. No abnormal or extraneous movement. - Gait: Posture is normal. Gait is steady with normal steps, base, and turning. Principal Diagnosis L Occipital CVA Discharge Exam Constitutional:elderly male in no apparent distress, sitting comfortably in bed. Eyes: EOMI, pupils equal and reactive bilaterally, no scleral icterus Cardiac: RRR, no murmurs, gallops or rubs. Normal S1, S2 Pulm: CTA BL, no wheezes, rhonchi, crackles or rubs, moving air well throughout both lungs Abd: soft, nontender, nondistended, normal bowel sounds, no rebound or guarding Extremities: 2+ peripheral pulses, no edema Neuro: no focal deficits, moving all 4 limbs, A&Ox3 Musculature: Get up and go test normal, no deficits Discharge Data Allergies Allergy/AdvReac Type Severity Reaction Status Date / Time No Known Allergies Allergy Unverified 08/28/20 11:06 Consultations 08/28/20 12:56 ED Decision to Admit Stat 08/28/20 17:48 Consult Neurology Routine Ordered Studies 08/28/20 11:03 CT angio head w con Stat CT angio neck with con Stat CT head/brain wo con Stat 08/29/20 09:30 MR brain wo/w con Routine Hospital Course (1) Cerebrovascular accident: Pt with never smoker with pmhx of HTN, HLD, and BPH presenting with L eye pain admitted for new L occipital CVA. 1. L occipital CVA - CT head showing 5x2 cm lesion in left occipital lobe - MRI confirming 6x2 cm lesion, with multiple old lacunar infarcts and small vessel ischemic change - discharged on Lisinopril 5, Atorvastatin 40, ASA 81, Metformin 500 daily. - no requirement for PT, OT. May benefit from ocular PT going forward. 2. New Diagnosis of DM2 - A1c 6.6 - added metformin to regimen, was seen by diabetes education, discussed carb and sugar control in diet 3. Hyperlipidemia - trig 323, chol 210, LDL 113 - statin as above - discontinued gemfibrozil All other chronic medical conditions per home regimen (2) Occipital stroke: (3) Hyperlipidemia: (4) HTN (hypertension): Total Time Total Time Spent Total Time Spent (In Minutes): see attending attestation Discharge Plan Discharge Items Patient Disposition: Home - Self-Care Reason For Visit: STROKE, EYE PAIN Discharge Diagnosis: L occipital CVA Activity: Resume your previous activity Non-emergency contact: Primary Care Provider Call non-emergency contact if: you have any medication questions and your symptoms worsen Follow-up/Referrals: Mendez Lim MD [Primary Care Provider] - 09/03/20 1:30 pm Diet: Carb Consistent or DM2 and Low Sodium (2gm) Addtl Attending Provider Instructions: You were evaluated in the emergency department for new onset balance difficulty and left eye pain that was found to be due to a large stroke on the back left of your brain (Left Occipital Lobe). This was initially seen on a CT scan of your head and confirmed on MRI. CT scans of the arteries in your head and neck confirmed that there is no stenosis or "blockage" of your arteries that caused the stroke. The MRI did show evidence of multiple smaller old strokes, which were most likely secondary to your high blood pressure and high cholesterol levels. Your cardiac echo was negative for any holes or weakening of the heart. It did show some moderate regurgitation, or backwards flow, through your mitral valve on the left side of your heart. This does not require intervention at this time, but may if it gets worse in the future. We discussed that repeat strokes are most likely to happen within the first week and 3 months of the previous one. Below are the steps you can take to lower your risks of having another stroke. 1. Clot thinning - Take your baby aspirin 81 mg everyday. This helps thin the platelet clumps that form the blood clot in strokes. 2. High Cholesterol and Triglycerides - take your Atorvastatin 40 mg everyday. This will help reduce the amount of floating cholesterol in your body, and help reduce the amount of "fat" floating around as well that lays down the plaque causing heart attacks and strokes. 3. Blood Pressure - You were started on a Lisinopril 5 mg, which is a low dose hypertension medication. Keeping your blood pressure under 140/90 will greatly decrease your chances of having a future stroke. 4. Type 2 Diabetes - Your A1c was 6.6, which diagnoses you with Diabetes. As we discussed, reduction of sugary foods, beverages and carbohydrate rich foods can help bring these numbers under control. Daily and consistent exercise can also help reduce your A1c as well as your cholesterol and triglycerides. You were started on a medication called Metformin 500 mg once a day which will help your body use and burn sugar easier, which will help reduce your A1c. 5. Smoking and Alcohol - you already don't do these things, so keep it up! Addtl Web Application Tester Provider Instructions: Risk Factors for Stroke: You can reduce your chances of stroke by working with your medical provider to adopt a healthy lifestyle. Some specific ways to lower your chance of stroke are: * If you are a smoker, now is the time to stop smoking cigarettes * If you are diabetic, improve the control of your blood sugars * Avoid excessive amounts of alcohol * Control high blood pressure * Lose weight if you are overweight * Be sure to lead an active lifestyle * Eat a healthy diet low in salt, cholesterol and fat You should know about other risk factors for stroke that you are unable to control. These include: * Age 55 years or older * Male gender * Certain racial groups: , or / * Family History of Stroke, Mini stroke or Heart Attack * Sickle Cell Disease Follow Up: It is important for you to keep your follow up appointments with your medical provider. Who to Call and When: Medical Emergencies: Call 911 immediately if you experience any of the following warning signs and symptoms of Stroke: * Sudden numbness or weakness of the face, arm or leg, especially on one side of the body * Sudden confusion, trouble speaking or understanding * Sudden trouble seeing in one or both eyes * Sudden trouble walking, dizziness, loss of balance or coordination * Sudden severe headache with no cause Do not delay calling 911 if you experience any warning signs or symptoms of a stroke. Delay in seeking medical attention may affect what treatments can be given to you. . Pending Studies at Discharge: No Stand-Alone Forms: Medications to Prevent Stroke, [facility], Smoking Cessation Medications and DC Order Prescriptions: New atorvastatin 40 mg Tablet 40 mg PO QAM 30 Days Qty: 30 RF: 0 aspirin 81 mg Tablet,Delayed Release (Dr/Ec) 81 mg PO QAM Qty: 30 RF: 0 lisinopril [Zestril] 5 mg Tablet 5 mg PO QAM 30 Days Qty: 30 RF: 0 metformin 500 mg Tablet 500 mg PO DAILYBD 30 Days Qty: 30 RF: 0 Continued tamsulosin [Flomax] 0.4 mg Capsule 0.4 mg PO QAM RF: 0 Discontinued gemfibrozil 600 mg Tablet 600 mg PO BID RF: 0 Discharge Orders: Discharge Order (Routine); Ordered 08/29/20 Ordered By: Kaitlin Child/Other Patient Handouts: Exercise for a Healthier Heart, 5 Steps for Eating Healthier, Discharge Instructions for Stroke, Type 2 Diabetes Admission Data Admit Date/Time: 08/28/20 15:16 Attending Provider: Mendez Lim Admit Provider: Kaitlin Colvin Primary Care Provider: Mendez Lim Other Providers: Mendez Lim ; Reagan Purvis Other Interventions: Discharge Summary Assessment (RN) Last Done: 08/29/20 16:32 Supervising Physician Co-Signing Physician Notes Attending attestation Pt seen and examined in concert with Dr. Colvin. In agreement with the documented findings as noted in the resident documentation with any exceptions or additions as noted here. Continued improvement of headache, vision changes and fatigue. On examination, S1/S2 nl RRR no MCG. CTAB. Abd NT/ND BS+ve, CNII-XII grossly intact L occiput CVA - neurology consultation - ASA, statin started. Reviewed limitations and 2ndary prevention. HTN - started lisinopril 5mg. Close follow up next week with ?increase in medication at that time. Hyperlipidemia - d/c'd gemfibrozil and started statin therapy as noted. Else see resident documentation as noted. Total attending time spent on this patient's case on the day of discharge: 40 minutes.
--- NOTE | 2020-08-29 16:15 | Pharmacy Report ---
Pharmacist Stroke Counseling - Date of Service August 29, 2020 - Scope: Pharmacy has been consulted to provide medication discharge counseling for this patient admitted with [ischemic stroke] [hemorrhagic stroke] [transient ischemic attack] as per the Pharmacist Discharge Counseling for Stroke Patients Protoc . - Medications on Discharge: Home Medications Medication Instructions Recorded Confirmed tamsulosin [Flomax] 0.4 mg PO QAM 08/28/20 08/28/20 New Rx's Medication Instructions Recorded aspirin 81 mg PO QAM #30 tab 08/29/20 atorvastatin 40 mg PO QAM 30 Days #30 tab 08/29/20 lisinopril [Zestril] 5 mg PO QAM 30 Days #30 tab 08/29/20 metformin 500 mg PO DAILYBD 30 Days #30 tab 08/29/20 - Action: The above medications, specifically ones for stroke treatment/prophylaxis, have been reviewed in detail with the patient and/or patient client representative(s) prior to discharge. This includes indication, common adverse reactions, drug interactions, and medication administration. Medication counseling has been employed using the teach-back method to ensure understanding. - Outcome: The patient and/or patient client representative(s) have demonstrated understanding of the medications. Additional comments: Spoke with patient and reviewed all new medications at discharge and medication changes. Patient demonstrated understanding of medication changes. No questions or concerns from patient. No other pertinent positives on interview Thank you for allowing pharmacy to be involved in the care of this patient. Please call [phone] with any additional questions
[2020-08-30] MEDS ORDERED: lisinopril 5 MG TAB PO SCH (09:00)
== END 2020-08-29 16:55 | disposition home or self-care (01) | DRG 66 ==
LOC: ED 10:34 → 1E 15:16

== ENCOUNTER 2022-09-12 16:31 | Observation (INO) ==
[2022-09-12] MEDS ORDERED: ONDANSETRON INJ 2 MG/ML 2 ML VIAL IV STA (16:46)
[2022-09-12] MEDS ORDERED: MoRPHine SULFATE 4 MG/ML 1 ML CARP\\VIAL IV STA (16:46)
[2022-09-12] MEDS ORDERED: SODIUM CHLORIDE 0.9% 1000ML 500 ML IV ONE (16:46)
--- NOTE | 2022-09-12 16:48 | Emergency Department Note ---
Impression & Plan Encephalopathy ADMIT ED Provider Note HPI: The patient is a 71-year-old gentleman with history of left occipital CVA, paroxysmal atrial fibrillation, currently on Eliquis, presents emergency department with chief complaint of a right-sided headache. Patient states that he developed a headache he believes that he woke up with this morning. States it worsened throughout the day today. He states it is directly behind his right eye and on the right side. Patient states he has not had any noted focal deficits. Patient states he did have multiple episodes of vomiting on the way here from [place]. He arrives via private vehicle. On arrival the patient is hemodynamically stable, he is saturating well on room air, he is alert and oriented on arrival. He is afebrile on arrival. Patient states that he had similar symptoms of headache previously when he was diagnosed with a CVA. ROS: - Per HPI *Outpatient medications and allergy history reviewed. *Pertinent external medical records reviewed. PE: General: Alert HEENT: Normocephalic, trachea midline Eyes: Extraocular eye movement is intact, no scleral erythema Pulmonary: Clear to auscultation bilaterally, no wheezing Cardio: Regular rate and rhythm GI: Abdomen is soft to palpation : No suprapubic tenderness MSK: No evidence of trauma or malformation of the extremities, no edema Skin: No evidence of rash Neuro: Alert, no focal deficits, equal bilateral head girls golf coach strength, symmetrical facial movements are appreciated, no drift of the upper extremities or lower extremities with testing against gravity Psychiatric: Cooperative cardiac monitor technician: (As interpreted by myself): - An order was placed for continuous cardiac monitoring - Patient was noted to be in sinus rhythm with a rate of 70 EKG: (As interpreted by myself): Rate: 61 Rhythm: Normal sinus rhythm Intervals: Within normal limits ST changes: No ST elevation Time: 1651 Interventions provided in ED: -IV morphine, IV Zofran, IV fluid bolus, IV Ativan Differential Diagnosis: Migraine complex, acute ischemic stroke, intracranial bleed / subarachnoid hemorrhage, intraparenchymal hemorrhage, amongst other potential pathologies. Medical Decision Making: Patient presented to the emergency department with a chief complaint of a headache that was located behind his right eye. He also had some nausea and vomiting. Patient states his symptoms had worsened throughout the day but he woke up with a headache. On arrival here to the ED the patient is alert and oriented, he is in no acute distress, he has no focal deficits and answers my questions appropriately. IV was established and lab work obtained, patient is not considered a candidate potentially for thrombolytic therapy given that he is outside the window for tPA. He does not have any focal deficits and stroke is not the most obvious diagnosis although patient states that he did have headache in a similar manner when he had his previous ischemic stroke in the left occipital lobe. CT imaging of the head without contrast was obtained and shows no evidence of intracranial bleeding, CT angiography of the head and neck does not show any evidence of large vessel occlusion or intracranial aneurysm or bleeding. Lab work obtained shows no leukocytosis, hemoglobin is stable, platelet count is within normal limits. CMP does not show any critical findings, creatinine near baseline at 1.47, magnesium slightly low at 1.6, given headache IV magnesium was ordered for repletion. Troponin is negative, EKG does not show any acute ischemic changes. Patient does not have any abdominal pain, his abdomen is soft and nontender on my exam, low suspicion for an acute intra abdominal process at this time and therefore CT imaging of the abdomen pelvis was not ordered on the patient's initial presentation. After patient returned from CT I was called to the room by the dairy lab technician as the patient became somewhat restless, he got his leg stuck in the railing on the side of the bed and was trying to urinate, he was not easily redirectable. On my assessment the patient does seem confused, we were able to reposition him and he was resting more comfortably in bed. Given his agitation he was ordered IV Ativan. Unclear origin of the patient's acute mental status change, possibly reactive to the morphine that he received, other possibilities would include ischemic stroke not noted on CT imaging and patient would require an MRI. Given his acute change in mentation I do feel he will need to be admitted for overnight observation and further management. I do not feel he has meningitis, his mental status change was relatively acute here in the ED, he was lucid on arrival, no recent fevers, he does not have a leukocytosis. Case was discussed with the on-call hospitalist for [facility], Dr. Elizondo. On my reassessment after a dose of IV Ativan the patient is sleeping and appears much more comfortable. Patient was placed for admission in stable condition. Consultants: Hospitalist Service Disposition discussion held by myself with: Patient's at the bedside Diagnosis: 1. Headache, acute 2. History of ischemic stroke 3. Acute encephalopathy, unspecified 4. Nausea and vomiting Disposition: ADMIT Davey Sequeira DO Emergency Medicine Past Med/Surg History Medical History Chronic kidney disease, stage 3a Diabetes mellitus, type 2 H/O: CVA (cerebrovascular accident) (08/2020) HTN (hypertension) Hyperlipidemia Moderate mitral regurgitation Occipital stroke Surgical History Status post incision and drainage Family History Father Congestive heart disease Mother Heart disease Brother Heart disease Suicide Diabetes Sister CLL (chronic lymphocytic leukemia) Kidney disease Coronary heart disease Valvular heart disease Diabetes S/P CABG (coronary artery bypass graft) Brother Heart disease Diabetes Myocardial infarction Denies family history of Ovarian cancer Breast cancer Colorectal cancer Social History Smoking Status: Never smoker Second Hand Exposure: No; Do You Dip or Chew Tobacco: No; Hx Alcohol Use: No Hx Substance Use: No Preferred Language: Egyptian Communication Ability: Effective Visual Impairment: No Limitations Hearing Ability: Normal Scruff Worker Required: No Beliefs That Will Affect Care: None marital status: Current Living Situation: Spouse current occupational status: retired Feels Safe at Home: Yes Diet: regular Diet Comment: regular caffeine: Yes during the past year weight has: remained stable Dental Care, Regularly: Yes Physical Activity Frequency: Daily Assistive Devices: Glasses Allergies Allergies Allergy/AdvReac Type Severity Reaction Status Date / Time acetaminophen [From Percocet] AdvReac Intermediate Nausea Unverified 09/12/22 17:19 hydrocodone [From [place]] AdvReac Intermediate Nausea Unverified 09/12/22 17:19 oxycodone [From Percocet] AdvReac Intermediate Nausea Unverified 09/12/22 17:19 Home Meds Home Medications Medication Instructions Recorded Confirmed apixaban 5 mg tablet (Eliquis) 5 mg PO BID 10/01/20 09/12/22 atorvastatin 40 mg tablet 20 mg PO DAILY 03/31/21 09/12/22 losartan 25 mg tablet 25 mg PO DAILY 03/31/21 09/12/22 coenzyme Q10 100 mg capsule (Co 100 mg PO DAILY 09/12/22 09/12/22 Q-10) Previous Rx's Medication Instructions Recorded betamethasone dipropionate 0.05 % 1 applic topical BID PRN skin 05/14/22 topical cream irritation #45 grams aspirin 81 mg tablet,delayed 81 mg PO QAM #90 tabs 07/02/22 release tamsulosin 0.4 mg capsule (Flomax) 0.4 mg PO QAM #90 caps 08/05/22 Results & Data (ED) Vital Signs Vital Signs - 24 hr 09/12/22 16:34 09/12/22 16:51 Temperature 36.0 C L Temperature Source Temporal Artery Scan Pulse Rate 84 65 Pulse Rhythm Regular Pulse Strength Normal Respiratory Rate 20 Respiratory Effort / Characteristics Non-Labored Spontaneous Respiratory Depth Normal Respiratory Pattern Regular Blood Pressure 131/86 Blood Pressure Mean 101 Blood Pressure Position Sitting Pulse Oximetry 98 Oxygen Delivery Method Room Air Sepsis Recent Fever Within 48 Hours No Sepsis New/Unexplained Change in Mental Status No Sepsis Action Taken by Nursing No Action Required Laboratory Data 09/12/22 16:54 09/12/22 16:54 Lab Results 09/12/22 09/12/22 09/12/22 Range/Units 16:54 16:54 16:54 WBC 10.06 (4.8-10.8) K/ul RBC 4.96 (4.70-6.10) M/uL Hgb 16.2 (14.0-18.0) g/dl POC Hgb (14.0-18.0) g/dl Hct 45.4 (42.0-52.0) % POC Hct (42-52) % MCV 91.5 (80.0-100.0) fL MCH 32.7 (25.0-34.0) pg MCHC 35.7 (32.0-36.0) g/dL RDW Std Deviation 40.9 (36.4-46.3) fL RDW Coeff of Adam 12.3 (11.5-14.5) % Plt Count 202 (130-400) K/uL MPV 8.8 L (9.4-12.4) fL Immature Gran % (Auto) 0.5 % Neut % (Auto) 82.3 % Lymph % (Auto) 12.2 % Granite % (Auto) 4.1 % Eos % (Auto) 0.4 % Baso % (Auto) 0.5 % Neut # (Auto) 8.28 H (1.40-6.50) K/uL Lymph # (Auto) 1.23 (1.2-3.4) K/uL Granite # (Auto) 0.41 (0.11-0.59) K/uL Eos # (Auto) 0.04 (0-0.50) K/uL Baso # (Auto) 0.05 (0-0.2) K/uL Immature Gran # (Auto) 0.05 (0.01-0.20) K/uL PT 11.5 (9.0-12.0) Seconds INR 1.1 (0.9-1.1) APTT 24.3 (21.0-31.0) Seconds PTT Ratio 0.9 POC Sodium (135-144) mmol/L Sodium (136-145) mmol/L POC Potassium (3.3-5.0) mmol/L Potassium (3.5-5.1) mmol/L POC Chloride (101-112) mmol/L Chloride (98-107) mmol/L Carbon Dioxide (21-32) mmol/L POC Total CO2 (24-31) mmol/L Anion Gap (3-11) POC Anion Gap (16-25) mmol/L POC BUN (7-18) mg/dl BUN (6-23) mg/dl Creatinine (0.6-1.4) mg/dl POC Creatinine (0.6-1.3) mg/dl Est Cr Clr Drug Dosing Est GFR ( Amer) ml/min Est GFR (Non-Af Amer) ml/min BUN/Creatinine Ratio (10-20) Glucose (70-99(Fasting)) mg/dl POC Glucose (other) (70-99) mg/dl Calcium (8.6-10.3) mg/dl POC Ioniz Calcium Elias (1.12-1.32) mmol/l Magnesium (1.7-2.4) mg/dl Total Bilirubin (0.2-1.0) mg/dl AST (13-39) U/L ALT (7-52) U/L Alkaline Phosphatase (34-104) U/L Troponin I High Sens (0-20) pg/ml Total Protein (6.0-8.3) gm/dl Albumin (3.4-5.0) gm/dl Globulin (2.5-4.0) gm/dl Albumin/Globulin Ratio (0.9-2) Blood Type A Positive Antibody Screen NEGATIVE 09/12/22 09/12/22 Range/Units 16:54 17:14 WBC (4.8-10.8) K/ul RBC (4.70-6.10) M/uL Hgb (14.0-18.0) g/dl POC Hgb 16.3 (14.0-18.0) g/dl Hct (42.0-52.0) % POC Hct 48 (42-52) % MCV (80.0-100.0) fL MCH (25.0-34.0) pg MCHC (32.0-36.0) g/dL RDW Std Deviation (36.4-46.3) fL RDW Coeff of Adam (11.5-14.5) % Plt Count (130-400) K/uL MPV (9.4-12.4) fL Immature Gran % (Auto) % Neut % (Auto) % Lymph % (Auto) % Granite % (Auto) % Eos % (Auto) % Baso % (Auto) % Neut # (Auto) (1.40-6.50) K/uL Lymph # (Auto) (1.2-3.4) K/uL Granite # (Auto) (0.11-0.59) K/uL Eos # (Auto) (0-0.50) K/uL Baso # (Auto) (0-0.2) K/uL Immature Gran # (Auto) (0.01-0.20) K/uL PT (9.0-12.0) Seconds INR (0.9-1.1) APTT (21.0-31.0) Seconds PTT Ratio POC Sodium 138 (135-144) mmol/L Sodium 137 (136-145) mmol/L POC Potassium 4.4 (3.3-5.0) mmol/L Potassium 4.4 (3.5-5.1) mmol/L POC Chloride 99 L (101-112) mmol/L Chloride 100 (98-107) mmol/L Carbon Dioxide 25 (21-32) mmol/L POC Total CO2 25 (24-31) mmol/L Anion Gap 12 H (3-11) POC Anion Gap 20.0 (16-25) mmol/L POC BUN 22 H (7-18) mg/dl BUN 19 (6-23) mg/dl Creatinine 1.47 H (0.6-1.4) mg/dl POC Creatinine 1.6 H (0.6-1.3) mg/dl Est Cr Clr Drug Dosing Not Reportable Est GFR ( Amer) 54.8 ml/min Est GFR (Non-Af Amer) 47.3 ml/min BUN/Creatinine Ratio 12.9 (10-20) Glucose 180 H (70-99(Fasting)) mg/dl POC Glucose (other) 185 H (70-99) mg/dl Calcium 9.4 (8.6-10.3) mg/dl POC Ioniz Calcium Elias 1.13 (1.12-1.32) mmol/l Magnesium 1.6 L (1.7-2.4) mg/dl Total Bilirubin 0.8 (0.2-1.0) mg/dl AST 21 (13-39) U/L ALT 22 (7-52) U/L Alkaline Phosphatase 108 H (34-104) U/L Troponin I High Sens 5.4 (0-20) pg/ml Total Protein 6.9 (6.0-8.3) gm/dl Albumin 4.1 (3.4-5.0) gm/dl Globulin 2.8 (2.5-4.0) gm/dl Albumin/Globulin Ratio 1.5 (0.9-2) Blood Type Antibody Screen Administered Medications Discontinued Medications Sodium Chloride (Nss 1000ml) 500 mls @ 999 mls/hr IV .Q31M ONE Stop: 09/12/22 17:16 Last Admin: 09/12/22 17:03 Dose: 999 mls/hr Documented By: SALLY Magnesium Sulfate/Dextrose (Magnesium Sulfate / D5w) 1 gm in 100 mls @ 100 mls/hr IV NOW STA Stop: 09/12/22 18:38 Last Admin: 09/12/22 18:20 Dose: 100 mls/hr Documented By: SALLY Ioversol (Optiray 320 500ml) 113 ml IV ONCE ONE Stop: 09/12/22 17:39 Last Admin: 09/12/22 17:41 Dose: 113 ml Documented By: DOROTEO Lorazepam (Lorazepam 2 Mg/1 Ml Vial) 1 mg IV NOW STA Stop: 09/12/22 18:33 Last Admin: 09/12/22 18:43 Dose: 1 mg Documented By: SALLY Morphine Sulfate (Morphine Sulfate 4 Mg/Ml 1 Ml Carp\Vial) 4 mg IV NOW STA Stop: 09/12/22 16:47 Last Admin: 09/12/22 17:02 Dose: 4 mg Documented By: SALLY Ondansetron HCl (Ondansetron Inj 2 Mg/Ml 2 Ml Vial) 4 mg IV NOW STA Stop: 09/12/22 16:47 Last Admin: 09/12/22 17:03 Dose: 4 mg Documented By: SALLY Imaging Data Radiologist's Impression: Head CT 09/12/22 16:[address] DOSE: HISTORY: Confusion. neuro deficit, acute stroke suspected TECHNIQUE: Multiaxial CT images of the head were performed without the use of intravenous contrast. Automated exposure control was utilized for this study. A dose lowering technique was utilized adhering to the principles of ALARA. Comparison: Head CT 08/28/2020. Findings: There is a small retention cyst within the right maxillary sinus. The remaining paranasal sinuses and mastoid air cells are clear. The calvarium and skull base are intact. Encephalomalacia within the left occipital lobe co nsistent with an old infarct the ventricles and sulci demonstrate mild age- related involutional changes. There is no mass, hematoma, midline shift, acute infarct. Moderate microvascular ischemic changes are again noted. Impression: 1. No acute infarct or intracranial hemorrhage. 2. Atrophy and microvascular ischemic changes again noted. 3. 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 ACT 112: Negative or not required by law. Electronically signed by: Andrea Mancilla M.D. 09/12/2022 6:11 PM Head CTA 09/12/22 16:45 HEAD & NECK CTA HISTORY: Confusion. neuro deficit, acute stroke suspected TECHNIQUE: Multiaxial CT images of the head were performed following the intravenous administration of contrast to evaluate the major cerebral vessels. Multiaxial CT images of the neck were also performed following the intravenous administration of contrast to evaluate the major cervical vessels. Maximum intensity projection images were also obtained. A dose lowering technique was utilized adhering to the principles of ALARA. COMPARISON: Head and neck CTA 08/28/2020. FINDINGS: There is no mass, hematoma, midline shift, or acute infarct. 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 Visualized intracranial internal carotid arteries, distal vertebral arteries, and basilar artery are widely patent. There is no significant stenosis, occlusion, or aneurysm seen within the bilateral ACAs, MCAs, or director part. The major dural venous sinuses are suboptimally opacified but likely patent. The aortic arch and proximal great vessels are widely patent. There is no significant stenosis, occlusion, or dissection identified within the bilateral common carotid, internal carotid, or vertebral arteries. There is a hypoplastic right vertebral artery, unchanged. IMPRESSION: 1. No significant stenosis, occlusion, or aneurysm within the [place] of Block. 2. No significant stenosis, occlusion, or dissection identified within the carotid or vertebral arteries. ACT 112: Negative or not required by law. Electronically signed by: Andrea Mancilla M.D. 09/12/2022 6:19 PM Neck CTA 09/12/22 16:45 HEAD & NECK CTA HISTORY: Confusion. neuro deficit, acute stroke suspected TECHNIQUE: Multiaxial CT images of the head were performed following the intravenous administration of contrast to evaluate the major cerebral vessels. Multiaxial CT images of the neck were also performed following the intravenous administration of contrast to evaluate the major cervical vessels. Maximum in tensity projection images were also obtained. A dose lowering technique was utilized adhering to the principles of ALARA. COMPARISON: Head and neck CTA 08/28/2020. FINDINGS: There is no mass, hematoma, midline shift, or acute infarct. 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 Visualized intracranial internal carotid arteries, distal vertebral arteries, and basilar artery are widely patent. There is no significant stenosis, occlusion, or aneurysm seen within the bilateral ACAs, MCAs, or director part. The major dural venous sinuses are suboptimally opacified but likely patent. The aortic arch and proximal great vessels are widely patent. There is no significant stenosis, occlusion, or dissection identified within the bilateral common carotid, internal carotid, or vertebral arteries. There is a hypoplastic right vertebral artery, unchanged. IMPRESSION: 1. No significant stenosis, occlusion, or aneurysm within the [place] of Block. 2. No significant stenosis, occlusion, or dissection identified within the carotid or vertebral arteries. ACT 112: Negative or not required by law. Electronically signed by: Andrea Mancilla M.D. 09/12/2022 6:19 PM Discharge Plan Visit Data Chief Complaint: Illness Stated Complaint: LIGHTHEADED, WEAKNESS, HEADACHE, VOMITTING ED Provider: Davey Sequeira Discharge Problem: Encephalopathy Forms Stand Alone Forms: [facility] Prescriptions Prescriptions: No Action aspirin 81 mg tablet,delayed release (DR/EC) 81 mg PO QAM Qty: 90 3RF tamsulosin [Flomax] 0.4 mg capsule 0.4 mg PO QAM Qty: 90 1RF Eliquis 5 mg tablet 5 mg PO BID atorvastatin 40 mg tablet 20 mg PO DAILY losartan 25 mg tablet 25 mg PO DAILY betamethasone dipropionate 0.05 % cream 1 applic topical BID PRN (Reason: skin irritation) Qty: 45 0RF coenzyme Q10 [Co Q-10] 100 mg Capsule 100 mg PO DAILY Referrals Referrals: Yesenia Mead DO [Primary Care Provider] -
[2022-09-12 17:11] LABS: Basophils # (auto) 0.05 K/uL (0-0.2); Basophils % (auto) 0.5 %; Eosinophils # (auto) 0.04 K/uL (0-0.50); Eosinophils % (auto) 0.4 %; Hematocrit (blood only) 45.4 % (42.0-52.0); Hemoglobin 16.2 g/dl (14.0-18.0); Immature Granulocytes # (auto) 0.05 K/uL (0.01-0.20); Immature Granulocytes % (auto) 0.5 %; Lymphocytes # (auto) 1.23 K/uL (1.2-3.4); Lymphocytes % (auto) 12.2 %; Mean Corpuscular Hemoglobin 32.7 pg (25.0-34.0); Mean Corpuscular Hgb Conc 35.7 g/dL (32.0-36.0); Mean Corpuscular Volume 91.5 fL (80.0-100.0); Mean Platelet Volume 8.8 fL (9.4-12.4); Monocytes # (auto) 0.41 K/uL (0.11-0.59); Monocytes % (auto) 4.1 %; Neutrophils # (auto) 8.28 K/uL (1.40-6.50); Neutrophils % (auto) 82.3 %; Platelet Count 202 K/uL (130-400); RDW Coefficient of Variation 12.3 % (11.5-14.5); RDW Standard Deviation 40.9 fL (36.4-46.3); Red Blood Count 4.96 M/uL (4.70-6.10); White Blood Count 10.06 K/ul (4.8-10.8)
[2022-09-12 17:29] LABS: Alanine Aminotransferase 22 U/L (7-52); Albumin Globulin Ratio 1.5 (0.9-2); Albumin Level 4.1 gm/dl (3.4-5.0); Alkaline Phosphatase 108 U/L (34-104); Anion Gap 12 (3-11); Aspartate Aminotransferase 21 U/L (13-39); BUN Creatinine Ratio 12.9 (10-20); Bilirubin,Total 0.8 mg/dl (0.2-1.0); Blood Urea Nitrogen 19 mg/dl (6-23); Calcium 9.4 mg/dl (8.6-10.3); Carbon Dioxide 25 mmol/L (21-32); Chloride 100 mmol/L (98-107); Est GFR (African American) 54.8 ml/min; Est GFR (Non-African American) 47.3 ml/min; Globulin 2.8 gm/dl (2.5-4.0); Glucose 180 mg/dl (70-99(Fasting)); Magnesium 1.6 mg/dl (1.7-2.4); Potassium 4.4 mmol/L (3.5-5.1); Sodium 137 mmol/L (136-145); Total Protein 6.9 gm/dl (6.0-8.3)
[2022-09-12 17:35] LABS: iSTAT Creatinine 1.6 mg/dl (0.6-1.3); iSTAT Hemoglobin 16.3 g/dl (14.0-18.0); iSTAT Ionized Calcium 1.13 mmol/l (1.12-1.32); iSTAT Potassium 4.4 mmol/L (3.3-5.0)
[2022-09-12 17:35] LABS: Troponin I High Sensitivity 5.4 pg/ml (0-20)
[2022-09-12 17:38] LABS: INR 1.1 (0.9-1.1); Partial Thromboplastin Ratio 0.9; Partial Thromboplastin Time 24.3 Seconds (21.0-31.0); Prothrombin Time 11.5 Seconds (9.0-12.0)
[2022-09-12] MEDS ORDERED: OPTIRAY 320 500ml IV ONE (17:38)
[2022-09-12] MEDS ORDERED: MAGNESIUM SULFATE / D5W 1 GM/100 ML BAG IV STA (17:39)
--- NOTE | 2022-09-12 18:13 | CT Scan Report ---
HEAD CT NONCONTRAST CT DOSE: HISTORY: Confusion. neuro deficit, acute stroke suspected TECHNIQUE: Multiaxial CT images of the head were performed without the use of intravenous contrast. A utomated exposure control was utilized for this study. A dose lowering technique was utilized adheri ng to the principles of ALARA. Comparison: Head CT 08/28/2020. Findings: There is a small retention cyst within the right maxillary sinus. The remaining paranasal s inuses and mastoid air cells are clear. The calvarium and skull base are intact. Encephalomalacia wit hin the left occipital lobe consistent with an old infarct the ventricles and sulci demonstrate mild age-related involutional changes. There is no mass, hematoma, midline shift, acute infarct. Moderate microvascular ischemic changes are again noted. Impression: 1. No acute infarct or intracranial hemorrhage. 2. Atrophy and microvascular ischemic changes again noted. 3. 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 ACT 112: Negative or not required by law. Electronically signed by: Andrea Mancilla M.D. 09/12/2022 6:11 PM
--- NOTE | 2022-09-12 18:21 | CT Scan Report ---
HEAD & NECK CTA HISTORY: Confusion. neuro deficit, acute stroke suspected TECHNIQUE: Multiaxial CT images of the head were performed following the intravenous administration o f contrast to evaluate the major cerebral vessels. Multiaxial CT images of the neck were also perform ed following the intravenous administration of contrast to evaluate the major cervical vessels. Maxim um intensity projection images were also obtained. A dose lowering technique was utilized adhering to the principles of ALARA. COMPARISON: Head and neck CTA 08/28/2020. FINDINGS: There is no mass, hematoma, midline shift, or acute infarct. 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 Visuali zed intracranial internal carotid arteries, distal vertebral arteries, and basilar artery are widely patent. There is no significant stenosis, occlusion, or aneurysm seen within the bilateral ACAs, MCAs , or fibre technologist. The major dural venous sinuses are suboptimally opacified but likely patent. The aortic arch and proximal great vessels are widely patent. There is no significant stenosis, occ lusion, or dissection identified within the bilateral common carotid, internal carotid, or vertebral arteries. There is a hypoplastic right vertebral artery, unchanged. IMPRESSION: 1. No significant stenosis, occlusion, or aneurysm within the [place] of Block. 2. No significant stenosis, occlusion, or dissection identified within the carotid or vertebral arter ies. ACT 112: Negative or not required by law. Electronically signed by: Andrea Mancilla M.D. 09/12/2022 6:19 PM
--- NOTE | 2022-09-12 18:21 | CT Scan Report ---
HEAD & NECK CTA HISTORY: Confusion. neuro deficit, acute stroke suspected TECHNIQUE: Multiaxial CT images of the head were performed following the intravenous administration o f contrast to evaluate the major cerebral vessels. Multiaxial CT images of the neck were also perform ed following the intravenous administration of contrast to evaluate the major cervical vessels. Maxim um intensity projection images were also obtained. A dose lowering technique was utilized adhering to the principles of ALARA. COMPARISON: Head and neck CTA 08/28/2020. FINDINGS: There is no mass, hematoma, midline shift, or acute infarct. 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 Visuali zed intracranial internal carotid arteries, distal vertebral arteries, and basilar artery are widely patent. There is no significant stenosis, occlusion, or aneurysm seen within the bilateral ACAs, MCAs , or medical records library professor. The major dural venous sinuses are suboptimally opacified but likely patent. The aortic arch and proximal great vessels are widely patent. There is no significant stenosis, occ lusion, or dissection identified within the bilateral common carotid, internal carotid, or vertebral arteries. There is a hypoplastic right vertebral artery, unchanged. IMPRESSION: 1. No significant stenosis, occlusion, or aneurysm within the [place] of Block. 2. No significant stenosis, occlusion, or dissection identified within the carotid or vertebral arter ies. ACT 112: Negative or not required by law. Electronically signed by: Andrea Mancilla M.D. 09/12/2022 6:19 PM
[2022-09-12] MEDS ORDERED: LORazepam 2 MG/1 ML VIAL IV STA (18:32)
[2022-09-12] MEDS ORDERED: HALOPERIDOL LACTATE 5 MG/ML 1 ML VIAL IV STA (18:37)
--- NOTE | 2022-09-12 18:49 | History & Physical Report ---
Date of Service September 12, 2022 Assessment & Plan (1) Encephalopathy: Plan: -Admit to med/tele -At this time the patient's acute encephalopathy is most likely due to the 4 mg IV morphine he recent prior to his CT's and the 1 mg IV ativan after arriving back to his room, this is likely causing some component of delirium -Prior to the IV morphine the ED staff confirmed that he was without meningitic symptoms and was answering questions appropriately. No leukocytosis or recent fever as well -No signs of seizure during his agitated episode, did not lose control of his bowels or bladder either -Hold additional benzodiazepines and narcotics -Monitor on tele -Will order Zyprexa 5 mg PO ODT q12h prn for recurrent agitation/anxiety -Will give 1L LR now as he appears dehydrated -Will obtain routine MRI of the brain wo con tomorrow for further evaluation -q4h neuro checks, fall and aspiration precautions, dysphagia screen, BP parameters (2) Aspiration pneumonia: Plan: Update: 2145 -Review of the patient's chest xray shows signs consistent with aspiration pneumonia, unsure if the aspiration occure before or after receiving morphine and ativan earlier -Will obtain CT chest wo con for further evaluation -Will obtain blood cultures, procal, esr/crp -Will start unasyn q6h for aspiration pneumonia -Speech consult placed -Incentive spirometry, flutter therapy, prn O2 to keep SpO2 at or greater than 95% (3) Nausea & vomiting: Plan: -Per the patient's , he has had approximately 8 episodes in the past 24 hours -Unsure of the etiology at this time but will obtain a STAT CT of the abd/pelvis for further evaluation -Will obtain chest xray to rule out infectious etiology and aspiration -Prn IV zofran q6h prn for nausea/vomiting -Will keep NPO for now, continue light IV fluids overnight (4) Headache: Plan: -Unsure of the cause of his acute headache this afternoon -CT of the head and CTA of the head/neck were negative for acute findings -Possibly due to an undiagnosed viral illness? Will obtain full respiratory birofire -Patient currently denies headache during my exam -Follow MRI of the brain tomorrow -PRN tylenol for now (5) Hypomagnesemia: Plan: -Noted to be 1.6 today, likely due to poor oral intake -S/P 1gm IV mag sulfate in the ED, no acute ECG changes -Continue to monitor on tele -AM mag level (6) PAF (paroxysmal atrial fibrillation): Plan: -Currently in NSR -Continue Eliquis -Monitor on tele (7) H/O: CVA (cerebrovascular accident): Plan: -Left occipital stroke in 2020 -Has been on aspirin, atorvastatin and eliquis since, continue all (8) Diabetes mellitus, type 2: Plan: -Previously on metformin but states it was stopped as his A1c was well controlled -For now will monitor BSG q4h while NPO, goal is 110-140 -Start CF of 15 and CR of 15 (when he can eat) -Adjust regimen as needed (9) BPH with obstruction/lower urinary tract symptoms: Plan: -Follow CT abd/pelvis for any possible kidney stones -Continue flomax for now (10) Hyperlipidemia: Plan: -Continue atorvastatin (11) HTN (hypertension): Plan: -Currently stable -Continue losartan Plan The patient was discussed with Dr. Elizondo at the time of the admission History of Present Illness Chief Complaint: headache, nausea, vomiting Primary Care Provider: DO Gustavo Mai Justin is a 71 year old male with a PMH significant for paroxysmal afib on Eliquis, previous left occipital CVA in 2020, HTN, DM II, HDL, and BPHwho presented to the [facility] on 09[facility] with complaints of headache, nausea, and vomiting. In the ED the patient's vitals were stable. Labs were significant for a CBC with neutrophil count of 8 otherwise WNL, AG of 12 with bicarb WNL, magnesium of 1.6, and alk phos of 108. CT of the head was read as "1. No acute infarct or intracranial hemorrhage. 2. Atrophy and microvascular ischemic changes again noted. 3. Old left occipital lobe infarct.". CTA of the head/neck were read as "1. No significant stenosis, occlusion, or aneurysm within the [place] of Block. 2. No significant stenosis, occlusion, or dissection identified within the carotid or vertebral arteries.". The patient was given 1L NSS, 1 gm IV mag sulfate, and 4 mg IV morphine was given prior to going down for his CT's. On return from his CT's the patient was noted to be very agitated, trying to climb out of bed and stating that he had to urinate. He was given 1 mg IV ativan prior to admission. At the time of the exam the patient was sleeping in bed, on his left side, with his and granddaughter sitting bedside. His states that he had not been acting himself over the past 24 hours. At baseline he has right upper and lower extremity weakness due to his previous stroke. He has a shuffling gate when ambulating as well. His states that over the past 24 hours the patient has been more fatigued, intermittently confused, taking longer to speak and having word finding difficulties. She states that he seemed ok this am when waking. Around 2 Pm today the patient told his that he was having a severe headache on the top of his head. She states that he was particularly sensitive to sounds and states that his sense of taste seemed to be off during breakfast. She checked his blood pressure and blood sugar which she reports were within normal limits. Due to these ongong issues he was brought to the ED. The patient's confirms that he has been taking all medications as prescribed, including his Eliquis, aspirin, and atorvastatin. The patient has had approximately 8 episodes of nausea and vomiting in the past 24 hours, he has a previous history of kidney stones as well. She does not believe that he has had any recent fevers, URI symptoms, medication changes, chest pain, SOB, abd pain, dysuria, hematuria, melena, bloody BM's, LE swelling, or recent trauma. We discussed code status, the patient is a Full Code and his would make medical decisions for him if he could make them himself. Please refer to Dr. Elizondo's attesatation for any changes to the treatment plan Allergies Allergy/AdvReac Type Severity Reaction Status Date / Time acetaminophen [From Percocet] AdvReac Intermediate Nausea Unverified 09/12/22 17:19 hydrocodone [From [place]] AdvReac Intermediate Nausea Unverified 09/12/22 17:19 oxycodone [From Percocet] AdvReac Intermediate Nausea Unverified 09/12/22 17:19 Home Medications Medication Instructions Recorded Confirmed Type apixaban 5 mg tablet (Eliquis) 5 mg PO BID 10/01/20 09/12/22 History atorvastatin 40 mg tablet 20 mg PO DAILY 03/31/21 09/12/22 History losartan 25 mg tablet 25 mg PO DAILY 03/31/21 09/12/22 History betamethasone dipropionate 0.05 % 1 applic topical BID PRN skin 05/14/22 09/12/22 Rx topical cream irritation #45 grams aspirin 81 mg tablet,delayed 81 mg PO QAM #90 tabs 07/02/22 09/12/22 Rx release tamsulosin 0.4 mg capsule (Flomax) 0.4 mg PO QAM #90 caps 08/05/22 09/12/22 Rx coenzyme Q10 100 mg capsule (Co 100 mg PO DAILY 09/12/22 09/12/22 History Q-10) Past Med/Surg History Medical History Chronic kidney disease, stage 3a Diabetes mellitus, type 2 H/O: CVA (cerebrovascular accident) (08/2020) HTN (hypertension) Hyperlipidemia Moderate mitral regurgitation Occipital stroke Surgical History Status post incision and drainage Family History Father Congestive heart disease Mother Heart disease Brother Heart disease Suicide Diabetes Sister CLL (chronic lymphocytic leukemia) Kidney disease Coronary heart disease Valvular heart disease Diabetes S/P CABG (coronary artery bypass graft) Brother Heart disease Diabetes Myocardial infarction Denies family history of Ovarian cancer Breast cancer Colorectal cancer Social History Smoking Status: Never smoker Second Hand Exposure: No; Do You Dip or Chew Tobacco: No; Hx Alcohol Use: No Hx Substance Use: No Preferred Language: Wolof Communication Ability: Effective Visual Impairment: No Limitations Hearing Ability: Normal Return Checker Required: No Beliefs That Will Affect Care: None marital status: Current Living Situation: Spouse current occupational status: retired Feels Safe at Home: Yes Diet: regular Diet Comment: regular caffeine: Yes during the past year weight has: remained stable Dental Care, Regularly: Yes Physical Activity Frequency: Daily Assistive Devices: Glasses Physical Exam Physical Exam: Physical Exam: General: fatigued due to recent morphine and Ativan, stated age, well- nourished, non-toxic appearing HEENT: Normocephalic, atraumatic, no scleral icterus, pupils around round, symmetrical, and reactive to light, moist mucus membranes, trachea midline, no thyromegaly Chest/Pulm: No respiratory distress, symmetrical chest expansion, clear breath sounds throughout Cardiac: RRR, no murmurs noted Abdomen: Negative for ascites and bruising, normoactive bowel sounds, soft, patient grimaces with deep palpation of the abdomen Musculoskeletal: Symmetrical and without signs of acute trauma, upper and lower extremities Extremities: Radial, dorsalis pedis, and posterior tibial pulses are intact and symmetrical, no edema noted in the BL LE's Skin: Warm, dry, no rashes , lesions, or scars noted Neuro: sleeping, but will follow most commands when asked, baseline RUE and RLE weakness compared to left, no focal defects but exam is limited due to recent sedating medications Psych: No acute distress, currently fatigued Results & Data Results & Data Vital Signs (Past 12 Hours) Vital Signs Temp Pulse Resp BP Pulse Ox O2 Del Method 09/12/22 16:51 65 09/12/22 16:34 36.0 C L 84 20 131/86 98 Room Air Laboratory Results Abnormal lab results 09/12/22 09/12/22 09/12/22 Range/Units 16:54 16:54 17:14 MPV 8.8 L (9.4-12.4) fL Neut # (Auto) 8.28 H (1.40-6.50) K/uL POC Chloride 99 L (101-112) mmol/L Anion Gap 12 H (3-11) POC BUN 22 H (7-18) mg/dl Creatinine 1.47 H (0.6-1.4) mg/dl POC Creatinine 1.6 H (0.6-1.3) mg/dl Glucose 180 H (70-99(Fasting)) mg/dl POC Glucose (70-99) mg/dl POC Glucose (other) 185 H (70-99) mg/dl Magnesium 1.6 L (1.7-2.4) mg/dl Alkaline Phosphatase 108 H (34-104) U/L Urine pH (4.5-7.5) Ur Specific [place] (1.000-1.030) Urine Glucose (UA) (Negative) Urine Ketones (Negative) 09/12/22 09/12/22 Range/Units 18:40 19:26 MPV (9.4-12.4) fL Neut # (Auto) (1.40-6.50) K/uL POC Chloride (101-112) mmol/L Anion Gap (3-11) POC BUN (7-18) mg/dl Creatinine (0.6-1.4) mg/dl POC Creatinine (0.6-1.3) mg/dl Glucose (70-99(Fasting)) mg/dl POC Glucose 180 H (70-99) mg/dl POC Glucose (other) (70-99) mg/dl Magnesium (1.7-2.4) mg/dl Alkaline Phosphatase (34-104) U/L Urine pH 8.5 H (4.5-7.5) Ur Specific [place] > 1.045 H (1.000-1.030) Urine Glucose (UA) Trace H (Negative) Urine Ketones 1+ H (Negative) Diagnostic Findings Head CT 09/12/22 16:[address] DOSE: HISTORY: Confusion. neuro deficit, acute stroke suspected TECHNIQUE: Multiaxial CT images of the head were performed without the use of intravenous contrast. Automated exposure control was utilized for this study. A dose lowering technique was utilized adhering to the principles of ALARA. Comparison: Head CT 08/28/2020. Findings: There is a small retention cyst within the right maxillary sinus. The remaining paranasal sinuses and mastoid air cells are clear. The calvarium and skull base are intact. Encephalomalacia within the left occipital lobe consistent with an old infarct the ventricles and sulci demonstrate mild age- related involutional changes. There is no mass, hematoma, midline shift, acute infarct. Moderate microvascular ischemic changes are again noted. Impression: 1. No acute infarct or intracranial hemorrhage. 2. Atrophy and microvascular ischemic changes again noted. 3. 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 ACT 112: Negative or not required by law. Electronically signed by: Andrea Mancilla M.D. 09/12/2022 6:11 PM Head CTA 09/12/22 16:45 HEAD & NECK CTA HISTORY: Confusion. neuro deficit, acute stroke suspected TECHNIQUE: Multiaxial CT images of the head were performed following the intravenous administration of contrast to evaluate the major cerebral vessels. Multiaxial CT images of the neck were also performed following the intravenous administration of contrast to evaluate the major cervical vessels. Maximum intensity projection images were also obtained. A dose lowering technique was utilized adhering to the principles of ALARA. COMPARISON: Head and neck CTA 08/28/2020. FINDINGS: There is no mass, hematoma, midline shift, or acute infarct. 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 Visualized intracranial internal carotid arteries, distal vertebral arteries, and basilar artery are widely patent. There is no significant stenosis, occlusion, or aneurysm seen within the bilateral ACAs, MCAs, or roll table operator. The major dural venous sinuses are suboptimally opacified but lik david patent. The aortic arch and proximal great vessels are widely patent. There is no significant stenosis, occlusion, or dissection identified within the bilateral common carotid, internal carotid, or vertebral arteries. There is a hypoplastic right vertebral artery, unchanged. IMPRESSION: 1. No significant stenosis, occlusion, or aneurysm within the [place] of Block. 2. No significant stenosis, occlusion, or dissection identified within the carotid or vertebral arteries. ACT 112: Negative or not required by law. Electronically signed by: Andrea Manclila M.D. 09/12/2022 6:19 PM Neck CTA 09/12/22 16:45 HEAD & NECK CTA HISTORY: Confusion. neuro deficit, acute stroke suspected TECHNIQUE: Multiaxial CT images of the head were performed following the intravenous administration of contrast to evaluate the major cerebral vessels. Multiaxial CT images of the neck were also performed following the intravenous administration of contrast to evaluate the major cervical vessels. Maximum intensity projection images were also obtained. A dose lowering technique was utilized adhering to the principles of ALARA. COMPARISON: Head and neck CTA 08/28/2020. FINDINGS: There is no mass, hematoma, midline shift, or acute infarct. 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 Visualized intracranial internal carotid arteries, distal vertebral arteries, and basilar artery are widely patent. There is no significant stenosis, occlusion, or aneurysm seen within the bilateral ACAs, MCAs, or roll table operator. The major dural venous sinuses are suboptimally opacified but likely patent. The aortic arch and proximal great vessels are widely patent. There is no significant stenosis, occlusion, or dissection identified within the bilateral common carotid, internal carotid, or vertebral arteries. There is a hypoplastic right vertebral artery, unchanged. IMPRESSION: 1. No significant stenosis, occlusion, or aneurysm within the [place] of Block. 2. No significant stenosis, occlusion, or dissection identified within the carotid or vertebral arteries. ACT 112: Negative or not required by law. Electronically signed by: Andrea Mancilla M.D. 09/12/2022 6:19 PM ECG Additional Comments: Normal sinus rhythm Inferior infarct , age undetermined Abnormal ECG When compar ed with ECG of 28-AUG-2020 10:47, Premature ventricular complexes are no longer Present Premature atrial complexes are no longer Present Inferior infarct is now Present Inverted T waves have replaced nonspecific T wave abnormality in Inferior leads Nonspecific T wave abnormality no longer evident in Lateral leads Code Status & VTE Plan Code Status FUll code VTE Prophylaxis Plan VTE Prophylaxis will be ordered: Yes Supervising Physician Co-Signing Physician Notes I personally saw and examined the patient. I verified all walker points and agree with Sylvester Mesa PA-C with the following exceptions and/or additions: 71 year old male presents to the ER with headache and generalized illness for the last 2-3 days. While in the ER he received 4mg IV morphine prior to CT head and following this he became significantly encephalopathic. No concerns for meningitis prior to morphine given however we did not see the patient prior to this. He became agitated in bed and was given lorazepam 1mg IV, patient was seen by the hospitalist team following this. Given drowsiness advised haloperidol also ordered not to be given. Patient currently unable to give any history. O/E Alert but drowsy, not orientated, HS RRR, no murmurs, Chest reduced breath sounds throughout, no wheezing or crackles, grimacing on abdominal palpation, unable to participate in neurological exam but appears to be moving all 4 ex tremities A/P Generalized illness for last 2-3 days - ?PNA on CXR, will get CT chest, procalcitonin/CRP/ESR, start Unasyn. CT A/P ordered due to grimacing on exam - unremarkable. CT head unremarkable. Brain MRI in AM given high risk of stroke. Toxic encephalopathy - secondary to morphine/lorazepam given in the ER. will wait for these to come out of his system and re-examine tomorrow. PG Care Time/CCT Total # of Minutes Spent Total Time Spent with Patient: Total time spent is greater than 50% in coordination of care (as documented) at patient's floor/unit and/or counseling patient: [place] [address] INT INP/OBS CARE 375MIN Patient Type Established Medical Decision Making High Complexity Diagnoses Encephalopathy G93.40 Aspiration pneumonia J69.0 Nausea & vomiting R11.2 Headache R51.9 Hypomagnesemia E83.42 PAF (paroxysmal atrial fibrillation) I48.0 H/O: CVA (cerebrovascular accident) Z86.73 Diabetes mellitus, type 2 E11.9 BPH with obstruction/lower urinary tract symptoms N40.1; N13.8 Hyperlipidemia E78.5 HTN (hypertension) I10
[2022-09-12] MEDS ORDERED: PHARMACIST DISCHARGE MED REC CONSULT PRN (19:30)
[2022-09-12 19:43] LABS: Appearance Urine Clear (Clear); Bilirubin Urine Negative (Negative); Blood Urine Negative (Negative); Color Urine Yellow; Glucose Urine UA Trace (Negative); Ketones Urine 1+ (Negative); Leukocyte Esterase Urine Negative (Negative); Nitrite Urine Negative (Negative); Protein Urine Negative (Negative); Specific Gravity Urine > 1.045 (1.000-1.030); Urobilinogen Urine Negative (Negative); pH Urine 8.5 (4.5-7.5)
[2022-09-12] MEDS ORDERED: ONDANSETRON INJ 2 MG/ML 2 ML VIAL IV PRN (20:09)
[2022-09-12] MEDS ORDERED: CARBOHYDRATES FOR HYPOGLYCEMIA PO PRN (20:11)
[2022-09-12] MEDS ORDERED: GLUCOSE 10 TAB/TUBE PO PRN (20:11)
[2022-09-12] MEDS ORDERED: GLUCAGON FOR INJ 1 MG VIAL SQ PRN (20:11)
[2022-09-12] MEDS ORDERED: DEXTROSE 50% 50 ML SYRINGE IV PRN (20:11)
[2022-09-12] MEDS ORDERED: GLUCOSE 40% GEL 15 GM TUBE PO PRN (20:11)
[2022-09-12] MEDS ORDERED: ACETAMINOPHEN 325 MG TAB PO PRN (20:12)
[2022-09-12 20:31] LABS: Adenovirus PCR Not Detected (NotDetected); Bordetella parapertussis PCR Not Detected (NotDetected); Bordetella pertussis PCR Not Detected (NotDetected); Chlamydia pneumoniae PCR Not Detected (NotDetected); Coronavirus 229E PCR Not Detected (NotDetected); Coronavirus CoV-2 (COVID19)PCR Not Detected (NotDetected); Coronavirus HKU1 PCR Not Detected (NotDetected); Coronavirus NL63 PCR Not Detected (NotDetected); Coronavirus OC43PCR Not Detected (NotDetected); Human Metapneumovirus PCR Not Detected (NotDetected); Influenza A PCR Not Detected (NotDetected); Influenza B PCR Not Detected (NotDetected); Mycoplasma pneumoniae PCR Not Detected (NotDetected); Parainfluenza Virus 1 PCR Not Detected (NotDetected); Parainfluenza Virus 2 PCR Not Detected (NotDetected); Parainfluenza Virus 3 PCR Not Detected (NotDetected); Parainfluenza Virus 4 PCR Not Detected (NotDetected); Respiratory Syncytial VirusPCR Not Detected (NotDetected); Rhinovirus/Enterovirus PCR Not Detected (NotDetected)
[2022-09-12] MEDS ORDERED: INSULIN ASPART PER UNIT CHARGE SC SCH ×2 (21:00→22:30)
--- NOTE | 2022-09-12 21:18 | CT Scan Report ---
Exam(s): CT ABDOMEN + PELVIS Without Contrast EXAM: CT Abdomen and Pelvis Without Intravenous Contrast CLINICAL HISTORY: Reason for exam: abd pain, nausea, vomiting. TECHNIQUE: Axial computed tomography images of the abdomen and pelvis without intravenous contrast. CTDI is 13.47 mGy and DLP is 782.64 mGy-cm. Automated exposure control was utilized for the study. A dose lowering technique was utilized adhering to the principles of ALARA. COMPARISON: No relevant prior studies available. FINDINGS: Lung bases: Unremarkable. No mass. No consolidation. ABDOMEN: Liver: Unremarkable. Gallbladder and bile ducts: Unremarkable. No calcified stones. No ductal dilation. Pancreas: Unremarkable. No ductal dilation. Spleen: Unremarkable. No splenomegaly. Adrenals: Unremarkable. No mass. Kidneys and ureters: Unremarkable. No obstructing stones. No hydronephrosis. Stomach and bowel: Diverticulosis, without acute diverticulitis. No small bowel obstruction. No free intraperitoneal air. PELVIS: Appendix: Normal appendix. Bladder: Unremarkable. No stones. Reproductive: Prominent prostate gland size measured 5 cm. ABDOMEN and PELVIS: Intraperitoneal space: Unremarkable. No free air. No significant fluid collection. Bones/joints: Degenerative changes of the spine. No acute fracture. No dislocation. Soft tissues: Unremarkable. Vasculature: Atherosclerotic changes of the aorta. No abdominal aortic aneurysm. Lymph nodes: Unremarkable. No enlarged lymph nodes. IMPRESSION: 1. Normal appendix. 2. Diverticulosis, without acute diverticulitis. No small bowel obstruction. No free intraperitoneal air. Electronically signed by: Messi Koch MD 09/12/22 21:17 PM
[2022-09-12] MEDS ORDERED: LACTATED RINGER'S 1,000 ML IV SCH (22:00)
[2022-09-12] MEDS ORDERED: OLANZapine ZYDIS 5 MG ORALLY DIS. TAB PO PRN (22:00)
--- NOTE | 2022-09-12 22:28 | CT Scan Report ---
Exam(s): CT CHEST Without Contrast EXAM: CT Chest Without Intravenous Contrast CLINICAL HISTORY: Reason for exam: concern for aspiration on CXR, need further eval. TECHNIQUE: Axial computed tomography images of the chest without intravenous contrast. Automated exposure control was utilized for the study. A dose lowering technique was utilized adhering to the principles of ALARA. COMPARISON: No relevant prior studies available. FINDINGS: Lungs: Unremarkable. No mass. No consolidation. Pleural space: Unremarkable. No infiltrate, pneumothorax, or pleural effusion. Heart: Cardiomegaly. No significant pericardial effusion. No significant coronary artery calcifications. Bones/joints: Degenerative changes of the spine. No acute fracture. No dislocation. Soft tissues: Unremarkable. Vasculature: Unremarkable. No thoracic aortic aneurysm. Lymph nodes: Unremarkable. No enlarged lymph nodes. IMPRESSION: No infiltrate, pneumothorax, or pleural effusion. Electronically signed by: Messi Koch MD 09/12/22 22:27 PM
--- NOTE | 2022-09-12 22:41 | XRay Report ---
SINGLE VIEW CHEST CLINICAL HISTORY: Change in mental status. FINDINGS: A cross table AP, portable chest radiograph is obtained. No prior studies are available for comparison at the time of dictation. The examination is significantly degraded by positioning. The h eart is enlarged. The pulmonary vasculature is noncongested. There is elevation of the right hemidiap hragm. Dependent atelectasis is noted in the right lung. No airspace consolidation or large pleural e ffusion is clearly identified. No pneumothorax is seen. The skeletal structures are osteopenic. Bony thorax is grossly intact. IMPRESSION: Cardiomegaly with no acute cardiopulmonary abnormality identified. ACT 112: Negative or not required by law. Electronically signed by: Сергей Anderson M.D. 09/12/2022 10:40 PM
[2022-09-12 23:04] LABS: C Reactive Protein < 0.50 mg/dl (0-0.5)
[2022-09-13] MEDS: APIXABAN 5 MG TABLET PO SCH ×2 (00:30→08:36)
[2022-09-13] MEDS: AMPICILLIN/SULBACTAM SOD 3,000 MG in 0.9 % SODIUM CHLORIDE 100 ML IV SCH ×3 (00:31→10:27)
[2022-09-13 06:16] LABS: Basophils # (auto) 0.03 K/uL (0-0.2); Basophils % (auto) 0.2 %; Hematocrit (blood only) 42.8 % (42.0-52.0); Hemoglobin 14.7 g/dl (14.0-18.0); Immature Granulocytes # (auto) 0.05 K/uL (0.01-0.20); Immature Granulocytes % (auto) 0.4 %; Lymphocytes # (auto) 1.32 K/uL (1.2-3.4); Lymphocytes % (auto) 9.9 %; Mean Corpuscular Hemoglobin 31.7 pg (25.0-34.0); Mean Corpuscular Hgb Conc 34.3 g/dL (32.0-36.0); Mean Corpuscular Volume 92.4 fL (80.0-100.0); Monocytes # (auto) 1.15 K/uL (0.11-0.59); Monocytes % (auto) 8.6 %; Neutrophils # (auto) 10.76 K/uL (1.40-6.50); Neutrophils % (auto) 80.9 %; Platelet Count 196 K/uL (130-400); RDW Coefficient of Variation 12.4 % (11.5-14.5); Red Blood Count 4.63 M/uL (4.70-6.10); White Blood Count 13.31 K/ul (4.8-10.8)
[2022-09-13 06:28] LABS: BUN Creatinine Ratio 14.6 (10-20); Calcium 8.4 mg/dl (8.6-10.3); Chol HDL Ratio 4.1 (0-5); Creatinine Clr Calc Pharmacy 51.5 ml/min; Est GFR (Non-African American) 58.7 ml/min; Magnesium 1.8 mg/dl (1.7-2.4); Potassium 3.9 mmol/L (3.5-5.1)
[2022-09-13 07:47] LABS: Estimated Average Glucose 143 mg/dl; Hemoglobin A1C 6.6 % (4.5-5.6)
[2022-09-13] MEDS: INSULIN ASPART PER UNIT CHARGE SC SCH ×2 (08:41→12:35)
[2022-09-13] MEDS ORDERED: LOSARTAN POTASSIUM 25 MG TAB PO SCH (09:00)
[2022-09-13] MEDS ORDERED: ATORVASTATIN 20 MG TAB PO SCH (09:00)
[2022-09-13] MEDS ORDERED: TAMSULOSIN HCL 0.4 MG CAP PO SCH (09:00)
[2022-09-13] MEDS ORDERED: ASPIRIN 81 MG ECTAB PO SCH (09:00)
--- NOTE | 2022-09-13 10:14 | Hospitalist Progress Note ---
Date of Service September 13, 2022 Assessment & Plan (1) Headache: Plan: Pt is a 71 yo male with PMH of L occipital stroke (2020), CKD, DM, HLD, and HTN presenting d/t severe headache w/ nausea and vomiting. Headache - hx of left occipital stroke which presented as severe left eye pain - stroke vs. migraine vs. brain lesion - head CT neg w/ evidence of old left occipital infarct - head/neck CTA showed no significant stenosis, occlusion, or aneurysm - tylenol PRN for pain control Nausea/vomiting - in association with severe headache - CTAP neg - zofran q6h PRN nausea/vomiting Concern for aspiration PNA - CXR concerning for aspiration- chest CT neg - passed bedside dysphagia screening - CRP, procal, and ESR WNL - blood cultures pending - unlikely that aspiration PNA is present; d/c ABX Encephalopathy- resolved - per documentation, pt was restless and confused for which he received ativan - suspect caused by delirium possibly due to 4 mg morphine received in ED for pain control - pt pleasant, A+Ox4 this AM - avoid additional benzodiazepines and narcotics Hypomagnesemia - 1.6 upon admission, likely due to poor oral intake - s/p 1g IV mag sulfate in the ED, no acute ECG changes - repeat mag WNL Afib - continue Eliquis 5 mg BID History of left occipital CVA (2020) - continue aspirin, atorvastatin and eliquis Type 2 DM - previously on metformin but states it was stopped as his A1c was well controlled - repeat A1c 6.6- well controlled - SSI; correction factor of 15 and carb ratio of 15 - most likely does not need outpatient regimen, recommend continuing to monitor BPH with obstruction/lower urinary tract symptoms - CTAP neg - continue flomax Hyperlipidemia - well controlled; TG 143, total 123, LDL 64 - continue atorvastatin 20 mg daily; would consider high intensity dosing, however, in the setting of well controlled numbers he may not be able to tolerate HTN - continue losartan 25 mg daily (2) Nausea & vomiting: (3) PAF (paroxysmal atrial fibrillation): (4) H/O: CVA (cerebrovascular accident): (5) Diabetes mellitus, type 2: (6) Chronic kidney disease, stage 3a: (7) BPH with obstruction/lower urinary tract symptoms: (8) Hyperlipidemia: (9) HTN (hypertension): Admission and Anticipated Discharge Date Admission Date: September 12, 2022 Results & Data Results & Data Vital Signs (Past 12 Hours) Vital Signs Temp Pulse Pulse Resp BP BP Pulse Ox 09/13/22 08:00 09/13/22 07:30 36.9 C 71 18 110/66 94 09/13/22 03:32 37.2 C 82 16 98/57 L 95 09/12/22 22:32 67 09/12/22 22:32 67 09/12/22 22:32 09/12/22 22:59 09/12/22 22:59 37.0 C 72 18 112/57 L 94 Pulse Ox O2 Del Method O2 Del Method 09/13/22 08:00 Room Air 09/13/22 07:30 Room Air 09/13/22 03:32 Room Air 09/12/22 22:32 09/12/22 22:32 09/12/22 22:32 94 Room Air 09/12/22 22:59 Room Air 09/12/22 22:59 Room Air Resident Activity Tracking Resident Involvement: Resident Care Provided Care Provided: Adult Hospital Medicine
--- NOTE | 2022-09-13 10:28 | Electrocardiogram Report ---
Test Reason : Blood Pressure : / mmHG Vent. Rate : 061 BPM Atrial Rate : 061 BPM P-R Int : 152 ms QRS Dur : 078 ms QT Int : 420 ms P-R-T Axes : 020 -06 005 degrees QTc Int : 422 ms Normal sinus rhythm Normal ECG When compared with ECG of 28-AUG-2020 10:47, Premature ventricular complexes are no longer Present Premature atrial complexes are no longer Present Confirmed by Sony Ruelas ([id number]) on 09/13/2022 10:27:56 AM Referred By: REFERRED SELF Confirmed By:Sony Ruelas
--- NOTE | 2022-09-13 11:56 | Magnetic Resonance Report ---
MRI OF THE BRAIN WITHOUT CONTRAST CLINICAL HISTORY: Stroke work up. Confusion. Headaches. COMPARISON STUDY: MRI of the brain August 29, [address] and CTA of the head September 12, 2022. TECHNIQUE: Utilizing a 1.5 Sangeeta magnet and dedicated coil, multiplanar, multiecho imaging of the bra in was performed without IV contrast. FINDINGS: There are no foci of restricted diffusion to suggest acute infarct. No acute intracranial h emorrhage, midline shift or mass effect is present. Jugular system is unremarkable. Basal cisterns ar e patent. There are no extraaxial collections. Flow-voids for the major intracranial vessels are pres ent. Encephalomalacia consistent with old infarct within the left occipital lobe is noted. Numerous w mitra matter T2 hyperintense foci are similar to MRI of August 29, 2020. There is no evidence for sinus itis. There is no mastoid fluid. Calvarial signal is within normal limits. IMPRESSION: 1. No acute intracranial findings. 2. 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 ACT 112: Negative or not required by law. Electronically signed by: Genaro Mcclendon M.D. 09/13/2022 11:54 AM
[2022-09-13] MEDS ORDERED: STROKE PATIENT DISCHARGE STA (12:04)
--- NOTE | 2022-09-13 12:07 | Discharge Summary ---
Date of Service September 13, 2022 Admission HPI Per Admitting Provider Gustavo Anderson is a 71 year old male with a PMH significant for paroxysmal afib on Eliquis, previous left occipital CVA in 2020, HTN, DM II, HDL, and BPHwho presented to the [facility] ED on 09/12/22 with complaints of headache, nausea, and vomiting. In the ED the patient's vitals were stable. Labs were significant for a CBC with neutrophil count of 8 otherwise WNL, AG of 12 with bicarb WNL, magnesium of 1.6, and alk phos of 108. CT of the head was read as "1. No acute infarct or intracranial hemorrhage. 2. Atrophy and microvascular ischemic changes again noted. 3. Old left occipital lobe infarct.". CTA of the head/neck were read as "1. No significant stenosis, occlusion, or aneurysm within the [place]. 2. No significant stenosis, occlusion, or dissection identified within the carotid or vertebral arteries.". The patient was given 1L NSS, 1 gm IV mag sulfate, and 4 mg IV morphine was given prior to going down for his CT's. On return from his CT's the patient was noted to be very agitated, trying to climb out of bed and stating that he had to urinate. He was given 1 mg IV ativan prior to admission. At the time of the exam the patient was sleeping in bed, on his left side, with his and granddaughter sitting bedside. His states that he had not been acting himself over the past 24 hours. At baseline he has right upper and lower extremity weakness due to his previous stroke. He has a shuffling gate when ambulating as well. His states that over the past 24 hours the patient has been more fatigued, intermittently confused, taking longer to speak and having word finding difficulties. She states that he seemed ok this am when waking. Around 2 Pm today the patient told his that he was having a severe headache on the top of his head. She states that he was particularly sensitive to sounds and states that his sense of taste seemed to be off during breakfast. She checked his blood pressure and blood sugar which she reports were within normal limits. Due to these ongong issues he was brought to the ED. The patient's confirms that he has been taking all medications as prescribed, including his Eliquis, aspirin, and atorvastatin. The patient has had approximately 8 episodes of nausea and vomiting in the past 24 hours, he has a previous history of kidney stones as well. She does not believe that he has had any recent fevers, URI symptoms, medication changes, chest pain, SOB, abd pain, dysuria, hematuria, melena, bloody BM's, LE swelling, or recent trauma. We discussed code status, the patient is a Full Code and his would make medical decisions for him if he could make them himself. Please refer to Dr. Elizondo's attesatation for any changes to the treatment plan Admission Exam Per Admitting Provider Physical Exam: General:fatigued due to recent morphine and Ativan, stated age, well- nourished, non-toxic appearing HEENT:Normocephalic, atraumatic, no scleral icterus, pupils around round, symmetrical, and reactive to light, moist mucus membranes, trachea midline, no thyromegaly Chest/Pulm:No respiratory distress, symmetrical chest expansion, clear breath sounds throughout Cardiac:RRR, no murmurs noted Abdomen:Negative for ascites and bruising, normoactive bowel sounds, soft, patient grimaces with deep palpation of the abdomen Musculoskeletal:Symmetrical and without signs of acute trauma, upper and lower extremities Extremities:Radial, dorsalis pedis, and posterior tibial pulses are intact and symmetrical, no edema noted in the BL LE's Skin:Warm, dry, no rashes , lesions, or scars noted Neuro:sleeping, but will follow most commands when asked, baseline RUE and RLE weakness compared to left, no focal defects but exam is limited due to recent sedating medications Psych:No acute distress, currently fatigued Principal Diagnosis headache with nausea/vomiting Discharge Exam Constitutional: well appearing, no acute distress HEENT: normocephalic, no conjunctival injection CV: irregular rhythm, no murmur, no LE edema Respiratory: Clear to auscultation bilaterally. No rhonchi, wheezes, or crackles. No increased work of breathing MSK: no gross deformities noted, strength in bilateral UE and LE 5/5 Skin: warm, dry, no rashes Neuro: alert, oriented, no FND noted Discharge Data Allergies Allergy/AdvReac Type Severity Reaction Status Date / Time acetaminophen [From Percocet] AdvReac Intermediate Nausea Unverified 09/12/22 17:19 hydrocodone [From [place]] AdvReac Intermediate Nausea Unverified 09/12/22 17:19 oxycodone [From Percocet] AdvReac Intermediate Nausea Unverified 09/12/22 17:19 Consultations 09/12/22 18:46 ED Decision to Admit Stat Ordered Studies 09/12/22 16:45 CT angio head w con Stat CT angio neck with con Stat CT head/brain wo con Stat IMPRESSION: 1. No significant stenosis, occlusion, or aneurysm within the [place]. 2. No significant stenosis, occlusion, or dissection identified within the carotid or vertebral arteries. 09/12/22 19:48 CT abd pelvis wo con Stat IMPRESSION: 1. Normal appendix. 2. Diverticulosis, without acute diverticulitis. No small bowel obstruction. No free intraperitoneal air. 09/12/22 21:32 CT chest diagnostic wo con Stat IMPRESSION: No infiltrate, pneumothorax, or pleural effusion. 09/13/22 00:00 MR brain wo con Routine IMPRESSION: 1. No acute intracranial findings. 2. 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 Hospital Course (1) Headache: Pt is a 71 yo male with PMH of L occipital stroke (2020), CKD, DM, HLD, and HTN presenting d/t severe headache w/ nausea and vomiting. Headache - hx of left occipital stroke which presented as severe left eye pain - head CT and brain MRI neg for acute pathology w/ evidence of old left occipital infarct - head/neck CTA showed no significant stenosis, occlusion, or aneurysm - tylenol PRN for pain control- resolved prior to discharge - suspect multifactorial benign cause: lack of adequate PO intake, dehydration, tension from vomiting prior to headache began Nausea/vomiting - in association with severe headache (which occurred after vomiting) - zofran q6h given PRN nausea/vomiting - resolved prior to discharge - suspect related to something he ate as it started ~30 minutes after ingestion vs. gastroenteritis Concern for aspiration PNA - CXR concerning for aspiration- chest CT neg - passed bedside dysphagia screening - CRP, procal, and ESR WNL; no fevers; lung exam WNL - blood cultures pending but do not suspect infection - no antibiotics necessary Delirium- resolved - per documentation, pt was restless and confused for which he received ativan - suspect caused by 4 mg morphine received in ED for pain control - pt pleasant, A+Ox4 this AM Afib - continue Eliquis 5 mg BID History of left occipital CVA (2020) - continue aspirin, atorvastatin, and eliquis Type 2 DM - previously on metformin but states it was stopped as his A1c was well controlled - repeat A1c 6.6- well controlled - SSI; correction factor of 15 and carb ratio of 15 - most likely does not need outpatient regimen, recommend continuing to monitor A1c BPH with obstruction/lower urinary tract symptoms - CTAP neg - continue flomax 0.4 mg daily - pt does note dizziness after taking his morning medications which he does not experience on the mornings that he forgets his meds; suspect d/t flomax causing orthostatic hypotension; pt to discuss changing his BP and BPH regimen with his PCP and drop wire aligner Hyperlipidemia - well controlled; TG 143, total 123, LDL 64 - continue atorvastatin 20 mg daily; would consider high intensity dosing in the setting of prior CVA, however, in the setting of well controlled numbers he may not be able to tolerate HTN - continue losartan 25 mg daily - concern for orthostatic hypotension as above Diet: regular DVT ppx: eliquis 5 mg BID Code: full Dispo: home (2) Nausea & vomiting: (3) PAF (paroxysmal atrial fibrillation): (4) H/O: CVA (cerebrovascular accident): (5) Diabetes mellitus, type 2: (6) Chronic kidney disease, stage 3a: (7) BPH with obstruction/lower urinary tract symptoms: (8) Hyperlipidemia: (9) HTN (hypertension): Total Time Total Time Spent Total Time Spent (In Minutes): as per attending attestation Discharge Plan Discharge Items Patient Disposition: Home - Self-Care Reason For Visit: HEADACHE, NAUSEA, VOMITING Discharge Diagnosis: headache with nausea and vomiting Activity: Per Instructions section Non-emergency contact: Primary Care Provider Call non-emergency contact if: you have any medication questions and your symptoms worsen Follow-up/Referrals: Yesenia Mead DO [Primary Care Provider] - 09/22/22 10:30 am Diet: Regular Addtl Attending Provider Instructions: You were admitted to the hospital for a severe headache in association with nausea/vomiting. You were treated with pain medications and fluids. All imaging of your head (CT and MRI) did not show any stroke or bleeding. A scan was also done to look at the arteries of your head and neck. This also did not show anything significant (including blockages or aneurysms). It is most likely that your headache was caused by many factors (poor diet, dehydration, poor sleep, etc). The nausea and vomiting may be related to how severe your headache was or it could be that you also caught a viral bug as well. A discharge summary will be sent to your primary care physician to ensure lanre nuity of care. Please bring this discharge summary with you to your next office appointment so that your provider can review it at that time. Medications: Your medication list has been reviewed and reconciled upon discharge to ensure accuracy and continuity of care. An updated list of all your medications is included with your hospital discharge paperwork. Please review this list closely and make note of any changes to your medications. - No changes were made to your medications. Follow up appointments: - Make a follow up appointment with your PCP within the next week. It is very important that you follow up with them shortly after discharge from the hospital. - Keep all of your follow up appointments as already scheduled. If you cannot make an appointment, notify your provider. CONTACT YOUR PRIMARY CARE PROVIDER if you experience any of the following: - Difficulty following your treatment plan - Difficulty taking any of your medications CALL 911 OR GO TO THE EMERGENCY DEPARTMENT if you experience any of the following: - Sudden, severe abdominal pain or nausea/vomiting - Severe chest pain or chest pain that radiates to your jaw or arm - Sudden, severe shortness of breath or difficulty breathing Pending Studies at Discharge: No Stand-Alone Forms: [facility], Smoking Cessation Medications and DC Order Prescriptions: Continued aspirin 81 mg tablet,delayed release (DR/EC) 81 mg PO QAM Qty: 90 3RF tamsulosin [Flomax] 0.4 mg capsule 0.4 mg PO QAM Qty: 90 1RF Eliquis 5 mg tablet 5 mg PO BID atorvastatin 40 mg tablet 20 mg PO DAILY losartan 25 mg tablet 25 mg PO DAILY betamethasone dipropionate 0.05 % cream 1 applic topical BID PRN (Reason: skin irritation) Qty: 45 0RF coenzyme Q10 [Co Q-10] 100 mg Capsule 100 mg PO DAILY Discharge Orders: Discharge Order (Routine); Ordered 09/13/22 Ordered By: Jada Child/Other Patient Handouts: Managing Type 2 Diabetes Admission Data Admit Date/Time: 09/12/22 19:30 Attending Provider: Franchesca Rob Admit Provider: Betty Good Primary Care Provider: Yesenia Mead Other Providers: Jace Elizondo Other Interventions: Discharge Summary Assessment (RN) Last Done: 09/13/22 12:26 Supervising Physician Co-Signing Physician Notes Resident Physician Supervision Note: I independently interviewed and examined the patient and verified the walker h istory and physical, reviewed labs and image studies and agree with resident findings and care plan. Resident Activity Tracking Resident Involvement: Resident Care Provided Care Provided: Adult Hospital Medicine
== END 2022-09-13 14:11 | disposition home or self-care (01) ==
LOC: 2N 16:31 → ED 16:31 → SUATTDRO 19:30 → 2N 21:47